=== PATIENT | male | born 1960 | race Caucasian/White ===

== ENCOUNTER → 2018-11-02 11:05 | Outpatient (CLI) | payer OTHER, SELFPAY ==
[2018-11-02 12:08] LABS: Erythrocyte Sedimentation Rate 2 mm/hr (0-20)
[2018-11-02 12:14] LABS: Absolute Lymphocyte Count 2.05 X10^3/ul (0.83-4.51); Absolute Neutrophil Count 3.9 X10^3/uL (2.0-7.7); Basophil# 0.03 X10^3/uL; Basophil% 0.5 % (0-1); Eosinophils% 1.5 % (0-5); Hematocrit 39.9 % (40-54); Hemoglobin 13.6 g/dl (13.0-16.5); Lymphocyte # 2.05 X10^3/ul (4.0); Lymphocyte % 30.8 % (19-41); Mean Corp Hgb Conc 34.1 g/gl (32-36); Mean Corpuscular Hgb 30.5 pg (27.0-32.0); Mean Corpuscular Volume 89.5 fL (80-94); Mean Platelet Vol. 9.1 fl (6.2-12.0); Monocyte# 0.55 X10^3/uL; Monocyte% 8.3 % (0-10); Neutrophil # 3.91 X10^3/uL (2.7-7.7); Neutrophil % 58.6 % (47-70); Platelet Count 217 K/mm3 (150-450); RBC Distribution Width SD 38.7 fl (35.1-43.9); Red Blood Count 4.46 M/mm3 (4.6-6.2); White Blood Count 6.7 K/mm3 (4.4-11.0)
[2018-11-02 12:23] LABS: POSITIVE COUNT NO; POSITIVE DIFFERENTIAL NO; POSITIVE MORPHOLOGY NO
[2018-11-02 12:53] LABS: ALB/GLOB Ratio 1.2 RATIO (0.9-2.4); AST(SGOT) 15 U/L (15-37); Alanine Aminotransfer ALT/SGPT 35 U/L (16-61); Albumin, Serum 4.1 g/dL (3.2-5.0); Alkaline Phosphatase 64 U/L (45-117); Anion Gap 10 (5-15); BUN 15 mg/dL (7-18); BUN/Creat Ratio 14.9 RATIO (10-20); Calcium,Total 8.6 mg/dL (8.5-10.1); Chloride 103 mmol/L (98-107); Creatinine, Serum 1.01 mg/dL (0.70-1.30); EST Glomerular Filtration Rate 80 mL/min (>60); Est Glom Filt Rate - Afr Amer 97 mL/min (>60); Globulin 3.4 g/dL (2.2-4.2); Glucose 93 mg/dL (74-106); Potassium 3.6 mmol/L (3.5-5.1); Protein, Total 7.5 g/dL (6.4-8.2); Sodium Level 139 mmol/L (136-145)
[2018-11-05 16:06] LABS: Endomysial Antibody IgA Negative (Negative)
[2018-11-06 13:23] LABS: Deamidated Gliadin IgA 4 units (0-19); Deamidated Gliadin IgG 5 units (0-19); Immunoglobulin A 254 mg/dL (90-386); t-Transglutaminase IgA <2 U/mL (0-3)
== END ==
PROVIDERS: Family Provider Family Medicine; PCP Family Medicine; Referring Provider Family Medicine; Visit Provider Family Medicine
DX: R19.7 Diarrhea, unspecified (principal); R10.30 Lower abdominal pain, unspecified
CPT/HCPCS: 36415; 80053; 82784; 83516; 85025; 85652; 86255; 87177; 87209; 87506

== ENCOUNTER → 2018-11-14 15:32 | Outpatient (CLI) | payer OTHER, SELFPAY | PROVIDERS: Family Provider Family Medicine; PCP Family Medicine; Referring Provider Family Medicine; Visit Provider Family Medicine | DX: R19.7 Diarrhea, unspecified (principal) | CPT/HCPCS: 87493; 87506 ==

== ENCOUNTER 2019-10-16 07:02 | Day surgery (SDC) | payer OTHER, SELFPAY ==
--- NOTE | 2019-09-23 02:17 | HP_ITS ---
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 Is patient in pain?: No Allergies No Known Allergies Allergy (Verified 09/23/19 13:56) Medications atorvastatin 10 mg tablet PO #30 tab 09/23/19 [History Confirmed 09/23/19] fexofenadine 180 mg tablet 180 mg PO DAILY 09/23/19 [History Confirmed 09/23/19] pantoprazole 40 mg tablet,delayed release PO #30 tab 09/23/19 [History Confirmed 09/23/19] PFSH Medical History (Updated 09/23/19 @ 13:55 by Taina Chang) Diarrhea (Acute) GERD (gastroesophageal reflux disease) (Acute) Surgical History (Updated 09/23/19 @ 13:55 by Taina Chang) History of colonoscopy (Acute ~12/2018) Status post excision of lipoma (Acute) Status post repair of pectoralis muscle tear (Acute) Family History (Updated 09/23/19 @ 13:55 by Taina Chang) Father Heart disease Cancer Mother Hypertension Social History (Updated 09/23/19 @ 14:17 by Alcira Patel MD) Smoking Status: Never smoker HPI HPI HPI: BRIT DELGADO, is a 59 M who presents to the office today for HPI HPI Surgical H&P: Yes HPI: BRIT DELGADO, is a 59 M who presents to the office today for reflux. Patient states he has been on protonix 40 mg p.o. daily for about 10 years. Patient states that his symptoms are mostly controlled with that however if he does drink more coffee or eats late in the day he will still have some symptoms of burning up his esophagus which occurs maybe about twice a week. Patient also has noticed increased coughing, patient has never smoked. Patient does have loose bowel movements daily denies any abdominal pain or cramping with this. Patient did undergo a colonoscopy 12/07/2018 where biopsies showed colonic mucosa with lymphoid follicle formation negative colitis and terminal ileum was normal on biopsy by Dr. Hernandez. ROS General General: Yes fatigue; no weight change, colon cancer, breast cancer or weakness HEENT HEENT: No difficulty swallowing, eye injury, eye surgery, swollen glands or hoarseness Endo Endocrine: No thyroid disease, diabetes mellitus, thyroid cancer, Hair loss, heat intolerance or cold intolerance Cardio Cardiovascular: No murmur, pacemaker, heart disease, atrial fibrillation, high blood pressure, heart attack, heart stent, palpitations, shortness of breat with exertion or chest pain Resp Respiratory: No shortness of breath, No sleep apnea, Yes cough, No COPD, No asthma, No emphysema, No wheezing Gastro Gastrointestinal: No abdominal pain, No nausea or vomiting, Yes diarrhea, No constipation, No blood in stool, Yes acid reflux, No hemorrhoids, No ulcers, No gallbladder problem, No black,tarry stools [place]on Hematologic: No blood thinners, No blood disorders, No bleeding, No anemia, No blood clots Neuro Neurologic: No weakness Exam Const General: cooperative, comfortable, no acute distress Resp Effort & Inspection: normal respiratory effort Cardio Rate: regular rate Heart Sounds: no murmurs GI Inspection: non-distended Palpation: soft, no guarding, no hernias, nontender Neuro Cranial Nerves: CN's II-XI intact bilaterally Extrem General: no clubbing, cyanosis or edema Psych Affect: normal affect Assessment & Plan Problems 1. Gastroesophageal reflux disease K21.9 Plan I have discussed the above with the patient. I have offered the patient EGD for evaluation. I have explained the risks/benefits of the procedure and described the procedure. I have discussed the risks with the patient, including but not limited to: infection, bleeding, perforation of the GI tract requiring emergency surgery, inability to complete the procedure, injury to any internal organs, complications of anesthesia, etc. - the patient understands and agrees to proceed. I have answered all the patient's questions to the patient's satisfaction and the patient has no further questions. Alcira Patel M.D. Pager: [phone] [facility] [address] [place] [address], [address] [place] [address] Office: [phone] Orders Orders: EGD Today Plan Detail Follow Up We will schedule EGD Coding Level of Care Code Off vis,new,level 3 Diagnoses Gastroesophageal reflux disease K21.9 09/23/19 1417 <Electronically signed by Alcira Zhang am, MD> Date _ Alcira Patel MD I have re-examined the patient. There are no clinical changes since date of exam.
[2019-09-23 13:56] VITALS: BMI 28.4
[2019-10-16] VITALS (7 sets, daily range): BP systolic 110–124; BP diastolic 73–82; PULSE 58–63; RESP 16; TEMP 35.8–36.4; O2SAT 97–100; BMI 29.4
--- NOTE | 2019-10-16 | IMM_PTH ---
PATIENT: BRIT DELGADO LOC: EN U#:[id number] AGE/SX: 59/M ROOM: RE10/16/[address]: Dr. Alcira Patel MD : 1960 BED: DIS: 10/16/2019 SPEC #: [id number] RECD: 10/16/19 14:55 STATUS: VIRGIL REJewel #: [id number] SABINO: 10/16/19 00:[address]: Alcira Patel DEPT: IMMUNOHISTOCHEMISTRY RECD BY: Low Baltazar ENTERED: 10/16/19 14:55 SP TYPE: IMMUNO OTHR DR: Dr. Manuel Rangel MD Tissues: Gastric mucous membrane Procedures: H Pylori (initial) P53 (initial) KI-67 (add) CDX2 (add) PHYSICIAN & INSTITUTION [place] [address] SPECIMEN INFORMATION: Tissue Source: A - Antrum biopsy, C - GE junction biopsy Clinical Info: GERD Specimen Number: [id number] A & C CPT code: 65859 x2, 83210 x2 METHODOLOGY: Deparaffinized sections of prefer/formalin-fixed tissue or PAP/DQ stained slides are incubated with monoclonal/polyclonal antibodies/oligonucleotide probes. Localization is made via biotin free immunoperoxidase method. Appropriate controls are performed and reacted as expected. Results on target cell population are indicated in the following table: RESULTS: ANTIBODY / CLONE RESULT Block A H Pylori (polyclonal) negative Block C P53 (DO-7) negative Ki-67 (30-9) positive, low CDX2 ([id number]) positive, focal These tests were developed and their performance characteristics determined by [facility]. They may not have been cleared or approved by the U.S. Food and Drug Administration. The FDA has determined that such clearance or approval is not necessary. The above immunohistochemical/dualISH markers are ordered and reviewed by the pathologist. INTERPRETATION: A. Antrum biopsy: Negative for Helicobacter pylori organisms. C. GE junction biopsy: No evidence of dysplasia. AM:denise 10/17/19
[2019-10-16] MEDS: Lactated Ringers 1,000 ML 100 ML IV (07:34)
--- NOTE | 2019-10-16 08:00 | EGD_PTH ---
PATIENT: BRIT DELGADO LOC: EN U#:[id number] AGE/SX: 59/M ROOM: RE10/16/[address]: Dr. Alcira Patel MD : 1960 BED: DIS: 10/16/2019 SPEC #: [id number] RECD: 10/16/19 10:50 STATUS: VIRGIL AYE #: [id number] SABINO: 10/16/19 08:[address]: Alcira Patel DEPT: SURGICAL PATHOLOGY RECD BY: Kev Cruz ENTERED: 10/16/19 13:33 SP TYPE: EGD BIOPSY OT DR: Dr. Manuel Rangel MD Tissues: A - Gastric mucous membrane B - Gastric mucous membrane C - Gastric mucous membrane D - Gastric mucous membrane Procedures: Special Stain Group II Surgery Specimen Level IV Alcian Blue/PAS (control) HEADER OPERATION: EGD ([facility]) PRE-OP DIAGNOSIS: GERD TISSUE SUBMITTED: A. Antrum biopsy for histo and H. pylori, B. Gastric polyp, C. GE junction biopsy, D. Gastric body biopsy MICROSCOPIC DIAGNOSIS A. Gastric antrum, biopsy: Mild chronic inflammation. See comment. B. Gastric polyp, biopsy: Fragments of fundic gland polyp. C. Gastroesophageal junction, biopsy: Mild chronic inflammation. 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 No evidence of dysplasia. See comment. D. Gastric body, biopsy: Minimal chronic inflammation. AM:denise 10/17/19 COMMENT A. The results of immunohistochemistry for Helicobacter pylori will be reported separately ([id number]). C. Immunohistochemistry ([id number]) supports the above diagnosis. Alcian blue/PAS stain with matched control supports the above diagnosis. MICROSCOPIC DESCRIPTION Slides are reviewed. GROSS DESCRIPTION A - Received in fixative is one container labeled with the patient's name and designated antrum biopsy. The specimen consists of one irregular fragment of light castillo soft tissue that measures 0.2 x 0.2 x 0.1 cm. The specimen is totally submitted in one cassette. B - Received in fixative is one container labeled with the patient's name and designated gastric polyp biopsy. The specimen consists of multiple irregular fragments of light castillo soft tissue that in aggregate measure 0.8 x 0.3 x 0.1 cm. The specimen is totally submitted in one cassette. C - Received in fixative is one container labeled with the patient's name and designated GE junction biopsy. The specimen consists of two irregular fragments of light castillo soft tissue that in aggregate measure 0.3 x 0.2 x 0.1 cm. The specimen is totally submitted in one cassette. D - Received in fixative is one container labeled with the patient's name and designated gastric body biopsy erythema. The specimen consists of one irregular fragment of light castillo soft tissue that measures 0.3 x 0.3 x 0.1 cm. The specimen is totally submitted in one cassette. / SJ:denise 10/16/19 TC:3 CPT: 61891 x4, 23443
--- NOTE | 2019-10-16 08:15 | OP.EGD_ITS ---
Patient Name: Andrea Ortiz Procedure Date: 10/16/2019 7:14 AM Date of : 1960 Age: 59 Procedure: Upper GI endoscopy Indications: Follow-up of gastro-esophageal reflux disease Providers: Alcira Patel MD Medicines: Monitored Anesthesia Care Patient Profile: This is a 59 year old male. Complications: No immediate complications. Procedure: Pre-Anesthesia Assessment: - Prior to the procedure, a History and Physical was performed, and patient medications and allergies were reviewed. The patient's tolerance of previous anesthesia was also reviewed. The risks and benefits of the procedure and the sedation options and risks were discussed with the patient. All questions were answered, and informed consent was obtained. Prior Anticoagulants: The patient has taken no previous anticoagulant or antiplatelet agents. ASA Grade Assessment: II - A patient with mild systemic disease. After reviewing the risks and benefits, the patient was deemed in satisfactory condition to undergo the procedure. After obtaining informed consent, the endoscope was passed under direct vision. Throughout the procedure, the patient's blood pressure, pulse, and oxygen saturations were monitored continuously. The gastroscope was introduced through the mouth, and advanced to the second part of duodenum. The upper GI endoscopy was accomplished without difficulty. The patient tolerated the procedure well. Scope In: 7:55:32 AM Scope Out: 8:07:25 AM Total Procedure Duration Time 0 hours 11 minutes 53 seconds Findings: The Z-line was variable and was found 42 cm from the incisors. Biopsies were taken with a cold forceps for histology. Mildly erythematous mucosa without bleeding was found in the gastric antrum. Biopsies were taken with a cold forceps for histology. Biopsies were taken with a cold forceps for Helicobacter pylori cultures. A single less than 5 mm semi-sessile polyp with no bleeding and no stigmata of recent bleeding was found in the gastric body. The polyp was removed with a cold biopsy forceps. Resection and retrieval were complete. A 2 cm hiatal hernia was present. Localized mildly erythematous mucosa without bleeding was found in the gastric body. Biopsies were taken with a cold forceps for histology. The examined duodenum was normal. Impression: - Z-line variable, 42 cm from the incisors. Biopsied. - Erythematous mucosa in the antrum. Biopsied. - A single gastric polyp. Resected and retrieved. - 2 cm hiatal hernia. - Erythematous mucosa in the gastric body. Biopsied. - Normal examined duodenum. Recommendation: - Await pathology results. - Discharge patient to home. - Continue present medications. Procedure Code(s): --- Professional --- 62994, Esophagogastroduodenoscopy, flexible, transoral; with biopsy, single or multiple Diagnosis Code(s): --- Professional --- K22.8, Other specified diseases of esophagus K31.89, Other diseases of stomach and duodenum K31.7, Polyp of stomach and duodenum K44.9, Diaphragmatic hernia without obstruction or gangrene K21.9, Gastro-esophageal reflux disease without esophagitis CPT copyright 2017 [employer]. All rights reserved. The codes documented in this report are preliminary and upon inorganic chemistry professor review may be revised to meet current compliance requirements. MD Alcira Deluna MD 10/16/2019 8:14:56 AM This report has been signed electronically. Number of Addenda: 0 Note Initiated On: 10/16/2019 7:14 AM
== END 2019-10-16 08:58 | disposition home or self-care (01) ==
LOC: EN 07:03 → AC 07:04
PROVIDERS: Family Provider Family Medicine; PCP Family Medicine; Referring Provider Family Medicine; Visit Provider Surgery
PROC: 0DJ08ZZ Inspection of Upper Intestinal Tract, Via Natural or Artificial Opening Endoscopic (ICD-10-PCS; CPT 43235; principal; 2019-10-16 07:55)
DX: K22.70 Barrett's esophagus without dysplasia (principal); K29.50 Unspecified chronic gastritis without bleeding; K31.7 Polyp of stomach and duodenum; K44.9 Diaphragmatic hernia without obstruction or gangrene; K21.9 Gastro-esophageal reflux disease without esophagitis; E78.00 Pure hypercholesterolemia, unspecified; Z79.899 Other long term (current) drug therapy
CPT/HCPCS: 43239; 88305; 88313; 88341; 88342; J7120

== ENCOUNTER → 2019-11-01 08:24 | Outpatient (CLI) | payer OTHER, SELFPAY ==
[2019-10-16 07:21] VITALS: BMI 29.4
[2019-11-01 08:28] LABS: Bacteria 0 SEEN /hpf (None Seen); Mucous, Urine 0 SEEN /hpf (<or=2+); Red Blood Cells-Urine 0 SEEN /hpf (0-5); Squamous Epithelial Cells - UA 0 SEEN /hpf (0-5); White Blood Cells 0 SEEN /hpf (0-5)
[2019-11-01 10:28] LABS: Color, Urine Yellow (Yellow); Glucose, Dipstick Normal (Normal); Ketone-Dipstick Negative (Negative); Leukocyte Esterase-Dipstick Negative /ul (Negative); Nitrite-Dipstick Negative (Negative); Occult Blood-Urine 10 /ul (Negative); Protein-Dipstick Negative (Negative); Specific Gravity, Urine 1.015 (1.002-1.030); Urine Bilirubin Dipstick Negative (Negative); Urine Clarity Sl. Cloudy (Clear); Urine Urobilinogen Normal (Normal)
[2019-11-01 11:46] LABS: ALB/GLOB Ratio 1.2 RATIO (0.9-2.4); AST(SGOT) 13 U/L (15-37); Alanine Aminotransfer ALT/SGPT 33 U/L (16-61); Albumin, Serum 4.1 g/dL (3.2-5.0); Alkaline Phosphatase 56 U/L (45-117); Anion Gap 6 (5-15); BUN 17 mg/dL (7-18); BUN/Creat Ratio 16.7 RATIO (10-20); Calcium,Total 8.7 mg/dL (8.5-10.1); Chloride 105 mmol/L (98-107); Cholesterol 174 mg/dL (200); Creatinine, Serum 1.02 mg/dL (0.70-1.30); EST Glomerular Filtration Rate 79 mL/min (>60); Est Glom Filt Rate - Afr Amer 96 mL/min (>60); Globulin 3.4 g/dL (2.2-4.2); Glucose 104 mg/dL (74-106); High Density Lipoprotein 41 mg/dL; PSA,Total - Annual Screen 1.28 ng/mL (0.00-4.00); Potassium 3.9 mmol/L (3.5-5.1); Protein, Total 7.5 g/dL (6.4-8.2); Sodium Level 141 mmol/L (136-145); Triglycerides 194 mg/dL; Very Low Density Lipoprotein 39 mg/dL (5-40)
== END ==
PROVIDERS: Family Provider Family Medicine; PCP Family Medicine; Visit Provider Family Medicine
DX: E78.00 Pure hypercholesterolemia, unspecified (principal); Z12.5 Encounter for screening for malignant neoplasm of prostate; R31.9 Hematuria, unspecified
CPT/HCPCS: 36415; 80053; 80061; 81001; 84153; G0103

== ENCOUNTER → 2020-09-24 07:57 | Outpatient (CLI) | payer OTHER, SELFPAY ==
[2019-10-16 07:21] VITALS: BMI 29.4
[2020-09-24 10:13] LABS: Cholesterol 152 mg/dL (200); High Density Lipoprotein 40 mg/dL; Triglycerides 126 mg/dL; Very Low Density Lipoprotein 25 mg/dL (5-40)
== END ==
PROVIDERS: PCP Family Medicine; Referring Provider Family Medicine; Visit Provider Family Medicine
DX: E78.00 Pure hypercholesterolemia, unspecified (principal)
CPT/HCPCS: 36415; 80061

== ENCOUNTER → 2020-09-30 13:25 | Outpatient (CLI) | payer SELFPAY ==
[2019-10-16 07:21] VITALS: BMI 29.4
--- NOTE | 2020-09-30 13:34 | CT_ITS ---
STUDY: CARDIAC CALCIUM SCORING - CT CHEST REASON FOR EXAM: Male, 60 years old. FAMILY HX HEART DISEASE. OVER READ ONLY RADIATION DOSAGE (If Supplied By Facility): CTDIvol = ( 12.19 ) mGy, DLP = ( 195.04 ) mGycm TECHNIQUE: Axial non-enhanced images were acquired through the heart for the sole purpose of measuring coronary artery calcium. Individualized dose optimization techniques were used for this CT. COMPARISON: None. FINDINGS: There are calcified lymph nodes of the mediastinum and right hilum. The visualized lungs are unremarkable without pulmonary nodule or localized groundglass opacity. No endobronchial lesions demonstrated. Degenerative changes of the thoracic spine present. CT/Limited Chest CT w/CCTA IMPRESSION: No significant incidental finding. Coronary calcium scoring reported separately. Electronically Signed: Christian Montes MD ([place]) at 8:04 EST , Service support ,
[2020-09-30 13:41] VITALS: BP 124/66; PULSE 65; RESP 18; TEMP 36.8; O2SAT 97; BMI 28.1
--- NOTE | 2020-09-30 16:50 | CA.SCORE ---
Calcium Scoring Date of Study:: 09/30/20 Coronary Calcium Scoring: High-resolution Computed Tomographic imaging of the chest was performed on [09/30/2020], with particular attention paid to the coronary arteries. Images from the examination were analyzed for the presence and extent of coronary artery calcification , using coronary calcium quantification software. The patient tolerated the procedure well and there were no complications. The results of the coronary calcification analysis are provided below. - Findings Left Main (LM): 18 Left Anterior Descending (LAD): 76 Left Circumflex (LCX): 3 Right Coronary Artery (RCA): 0 Total Agatston Score: 97 Calcium Scoring Interpretation: 0 No identifiable atherosclerotic plaque. Very low cardiovascular disease risk. <5% chance of presence coronary artery disease A Negative Examination 1-10 Minimal Plaque burden. Significant coronary artery disease very unlikely. 11-100 Mild plaque burden. Likely mild or minimal coronary atherosclerosis. 101-400 Moderate plaque burden Moderate non-obstructive coronary artery disease highly likely. Over 400 Extensive plaque burden. High likelihood of at least one significant coronary stenosis (>50% diameter) Calcium Score: 11 - 100 Likely mild or minimal coronary stenosis - The above is suggestive of mild atherosclerotic nonobstructive plaquing. A full assessment of cardiac risk factors should include assessment of all conventional risk factors.
== END ==
PROVIDERS: PCP Family Medicine; Referring Provider Family Medicine; Visit Provider Family Medicine
DX: Z82.49 Family history of ischemic heart disease and other diseases of the circulatory system (principal)
CPT/HCPCS: 75571; 76380

== ENCOUNTER → 2021-03-12 07:46 | Outpatient (CLI) | payer OTHER, SELFPAY ==
[2020-09-30 13:41] VITALS: BMI 28.1
[2021-03-12 10:04] LABS: Absolute Lymphocyte Count 1.46 X10^3/uL (0.83-4.51); Basophil# 0.06 X10^3/uL; Eosinophil# 0.14 X10^3/uL; Eosinophils% 2.2 % (0-5); Hematocrit 41.6 % (40-54); Hemoglobin 13.3 g/dL (13.0-16.5); Lymphocyte # 1.46 X10^3/ul (0.83-4.51); Lymphocyte % 23.4 % (19-41); Mean Corpuscular Hgb 29.8 pg (27.0-32.0); Mean Corpuscular Volume 93.3 fL (80-94); Mean Platelet Vol. 9.5 fl (6.2-12.0); Monocyte# 0.52 X10^3/uL; Monocyte% 8.3 % (0-10); NRBC Flagged by Analyzer 0 % (0-5); Neutrophil # 4.03 X10^3/uL (2.7-7.7); Neutrophil % 64.6 % (47-70); Platelet Count 234 K/mm3 (150-450); RBC Distribution Width CV 11.6 % (11.6-14.6); Red Blood Count 4.46 M/mm3 (4.6-6.2); White Blood Count 6.2 K/mm3 (4.4-11.0)
[2021-03-12 11:15] LABS: ALB/GLOB Ratio 1.2 RATIO (0.9-2.4); AST(SGOT) 11 U/L (15-37); Alanine Aminotransfer ALT/SGPT 24 U/L (16-61); Alkaline Phosphatase 67 U/L (45-117); Anion Gap 4 (5-15); BUN 22 mg/dL (7-18); BUN/Creat Ratio 19.8 RATIO (10-20); Calcium,Total 9.2 mg/dL (8.5-10.1); Chloride 104 mmol/L (98-107); Cholesterol 170 mg/dL (200); Creatinine, Serum 1.11 mg/dL (0.70-1.30); EST Glomerular Filtration Rate 71 mL/min (>60); Est Glom Filt Rate - Afr Amer 87 mL/min (>60); Globulin 3.4 g/dL (2.2-4.2); Glucose 107 mg/dL (74-106); High Density Lipoprotein 44 mg/dL; Magnesium 2.6 mg/dL (1.6-2.6); Potassium 4.7 mmol/L (3.5-5.1); Protein, Total 7.4 g/dL (6.4-8.2); Sodium Level 138 mmol/L (136-145); Triglycerides 156 mg/dL; Very Low Density Lipoprotein 31 mg/dL (5-40)
== END ==
PROVIDERS: PCP Family Medicine; Referring Provider Family Medicine; Visit Provider Family Medicine
DX: R42 Dizziness and giddiness (principal); E78.00 Pure hypercholesterolemia, unspecified
CPT/HCPCS: 36415; 80053; 80061; 83735; 85025

== ENCOUNTER → 2021-08-11 | Outpatient (CLI) | payer OTHER, SELFPAY | END | disposition home or self-care (01) | LOC: LABSPEC 15:16 | PROVIDERS: PCP Family Medicine; Visit Provider Nurse Practitioner Family | DX: R31.9 Hematuria, unspecified (principal) | CPT/HCPCS: 87086 ==

== ENCOUNTER → 2021-08-13 12:36 | Outpatient (CLI) | payer OTHER, SELFPAY ==
--- NOTE | 2021-08-13 12:38 | US_ITS ---
STUDY: SCROTUM ULTRASOUND REASON FOR EXAM: Male, 60 years old. Pain x2 weeks TECHNIQUE: Ultrasound evaluation of the scrotum was performed with color Doppler and static molina-scale imaging. COMPARISON: None. FINDINGS: RIGHT TESTICLE INTRATESTICULAR: There is a normal size of the right testicle. The right testicle measures 4 x 3.3 x 2 cm. There is a heterogeneous echotexture. There is normal arterial and normal venous vascularity. There is no demonstrated right testicular mass or cyst. EXTRATESTICULAR: The epididymis is normal in size. The epididymis head measures 1.4 cm. There is normal vascularity of the epididymis. There is a 0.4 cm epididymal cyst There is a moderate size hydrocele. There is no demonstrated varicocele. There is no demonstrated extratesticular mass or cyst. LEFT TESTICLE INTRATESTICULAR: There is a normal size of the left testicle. The left testicle measures 4.0 x 2.8 x 2.0 cm. There is a heterogeneous echotexture. There is normal arterial and normal venous vascularity. There is no demonstrated left testicular mass or cyst. EXTRATESTICULAR: The epididymis is normal in size. The epididymis head measures 1.4 cm. There is normal vascularity of the epididymis. There are 2 separate epididymal cysts. Larger measures 0.6 cm There is a moderate size hydrocele. There is no demonstrated varicocele. There is no demonstrated extratesticular mass or cyst. US/Testicular with Arterial Flow IMPRESSION: Although the testicles are heterogeneous, there is no discrete lesion or sonographic evidence to suspect torsion Bilateral moderate-sized hydroceles Bilateral epididymal cysts No sonographic evidence of hernia Electronically Signed: Hernan Tejeda MD at 13:46 EDT , Service support ,
== END ==
PROVIDERS: PCP Family Medicine; Referring Provider Nurse Practitioner Family; Visit Provider Nurse Practitioner Family
DX: N43.3 Hydrocele, unspecified (principal); N50.3 Cyst of epididymis
CPT/HCPCS: 76870; 93976

== ENCOUNTER → 2021-08-26 11:17 | Outpatient (CLI) | payer OTHER, SELFPAY ==
[2021-08-26 13:12] LABS: PSA,Total - Annual Screen 1.92 ng/mL (0.00-4.00)
== END ==
PROVIDERS: PCP Family Medicine; Visit Provider Urology
DX: Z12.5 Encounter for screening for malignant neoplasm of prostate (principal)
CPT/HCPCS: 36415; 84153; G0103

== ENCOUNTER → 2022-04-25 | Outpatient (CLI) | payer OTHER, SELFPAY ==
[2022-04-25 17:33] LABS: Absolute Lymphocyte Count 1.93 X10^3/uL (0.83-4.51); Absolute Neutrophil Count 3.9 X10^3/uL (2.0-7.7); Basophil# 0.06 X10^3/uL; Basophil% 0.9 % (0-1); Eosinophil# 0.14 X10^3/uL; Eosinophils% 2.1 % (0-5); Hematocrit 37.5 % (40-54); Hemoglobin 12.5 g/dL (13.0-16.5); Lymphocyte # 1.93 X10^3/ul (0.83-4.51); Lymphocyte % 29.1 % (19-41); Mean Corp Hgb Conc 33.3 g/dL (32-36); Mean Corpuscular Hgb 30.5 pg (27.0-32.0); Mean Corpuscular Volume 91.5 fL (80-94); Mean Platelet Vol. 9.6 fl (6.2-12.0); Monocyte# 0.62 X10^3/uL; Monocyte% 9.3 % (0-10); NRBC Flagged by Analyzer 0 % (0-5); Neutrophil # 3.88 X10^3/uL (2.7-7.7); Neutrophil % 58.4 % (47-70); Platelet Count 247 K/mm3 (150-450); RBC Distribution Width CV 11.9 % (11.6-14.6); RBC Distribution Width SD 39.7 fl (35.1-43.9); White Blood Count 6.6 K/mm3 (4.4-11.0)
[2022-04-25 18:05] LABS: ALB/GLOB Ratio 1.2 RATIO (0.9-2.4); AST(SGOT) 11 U/L (15-37); Alanine Aminotransfer ALT/SGPT 22 U/L (16-61); Albumin, Serum 3.9 g/dL (3.2-5.0); Alkaline Phosphatase 66 U/L (45-117); Anion Gap 5 (5-15); BUN 22 mg/dL (7-18); BUN/Creat Ratio 19.5 RATIO (10-20); Calcium,Total 8.6 mg/dL (8.5-10.1); Chloride 106 mmol/L (98-107); Cholesterol 160 mg/dL (200); Creatinine, Serum 1.13 mg/dL (0.70-1.30); EST Glomerular Filtration Rate 70 mL/min (>60); Est Glom Filt Rate - Afr Amer 84 mL/min (>60); Globulin 3.3 g/dL (2.2-4.2); Glucose 93 mg/dL (74-106); High Density Lipoprotein 40 mg/dL; Potassium 3.8 mmol/L (3.5-5.1); Protein, Total 7.2 g/dL (6.4-8.2); Sodium Level 140 mmol/L (136-145); Triglycerides 224 mg/dL; Very Low Density Lipoprotein 45 mg/dL (5-40)
[2022-04-25 21:06] LABS: Hemoglobin A1c 5.5 % (3.8-5.6)
[2022-04-25 22:32] LABS: Vitamin B12 435 pg/mL (211-911)
[2022-04-26 14:50] LABS: Ferritin 264 ng/mL (26-388); Iron 100 ug/dL (65-175); Iron Binding Capacity,Total 280 ug/dL (250-450); PERCENT IRON SATURATION 35.7 % (15.0-55.0)
== END | disposition home or self-care (01) ==
LOC: MFPLAB 16:30
PROVIDERS: PCP Family Medicine; Visit Provider Family Medicine
DX: R20.0 Anesthesia of skin (principal); E78.00 Pure hypercholesterolemia, unspecified; K21.9 Gastro-esophageal reflux disease without esophagitis; E61.1 Iron deficiency
CPT/HCPCS: 36415; 80053; 80061; 82607; 82728; 83036; 83540; 83550; 85025

== ENCOUNTER → 2023-07-28 | Outpatient (CLI) | payer OTHER, SELFPAY ==
[2023-07-28 13:17] LABS: AST(SGOT) 18 U/L (15-37); Alanine Aminotransfer ALT/SGPT 31 U/L (16-61); Cholesterol 162 mg/dL (200); High Density Lipoprotein 43 mg/dL; Triglycerides 172 mg/dL; Very Low Density Lipoprotein 34 mg/dL (5-40)
== END | disposition home or self-care (01) ==
PROVIDERS: PCP Family Medicine; Referring Provider Family Medicine; Visit Provider Family Medicine
DX: E78.00 Pure hypercholesterolemia, unspecified (principal)
CPT/HCPCS: 36415; 80061; 84450; 84460

== ENCOUNTER → 2024-04-04 | Outpatient (CLI) | payer OTHER, SELFPAY ==
[2024-04-04 12:15] LABS: Color, Urine Yellow (Yellow); Glucose, Dipstick Normal (Normal); Ketone-Dipstick Negative (Negative); Leukocyte Esterase-Dipstick Negative /ul (Negative); Nitrite-Dipstick Negative (Negative); Occult Blood-Urine 10 /ul (Negative); Protein-Dipstick Negative (Negative); Urine Bilirubin Dipstick Negative (Negative); Urine Clarity Clear (Clear); Urine Urobilinogen Normal (Normal)
[2024-04-04 13:02] LABS: Absolute Lymphocyte Count 1.62 X10^3/uL (0.83-4.51); Absolute Neutrophil Count 3.8 X10^3/uL (2.0-7.7); Basophil# 0.06 X10^3/uL; Eosinophil# 0.14 X10^3/uL; Eosinophils% 2.3 % (0-5); Hematocrit 38.5 % (40-54); Hemoglobin 12.8 g/dL (13.0-16.5); Lymphocyte # 1.62 X10^3/ul (0.83-4.51); Lymphocyte % 26.2 % (19-41); Mean Corp Hgb Conc 33.2 g/dL (32-36); Mean Corpuscular Hgb 30.8 pg (27.0-32.0); Mean Corpuscular Volume 92.5 fL (80-94); Mean Platelet Vol. 9.9 fl (6.2-12.0); Monocyte# 0.52 X10^3/uL; Monocyte% 8.4 % (0-10); NRBC Flagged by Analyzer 0 % (0-5); Neutrophil # 3.83 X10^3/uL (2.7-7.7); Neutrophil % 61.8 % (47-70); Platelet Count 232 K/mm3 (150-450); RBC Distribution Width CV 11.9 % (11.6-14.6); RBC Distribution Width SD 40.7 fl (35.1-43.9); Red Blood Count 4.16 M/mm3 (4.6-6.2); White Blood Count 6.2 K/mm3 (4.4-11.0)
[2024-04-04 13:23] LABS: Vitamin B12 412 pg/mL (211-911); Vitamin D,25 Hydroxy 28.4 ng/mL
[2024-04-04 13:32] LABS: Hemoglobin A1c 5.4 % (3.8-5.6)
[2024-04-04 13:37] LABS: ALB/GLOB Ratio 1.2 RATIO (0.9-2.4); AST(SGOT) 14 U/L (15-37); Alanine Aminotransfer ALT/SGPT 24 U/L (16-61); Albumin, Serum 3.9 g/dL (3.2-5.0); Alkaline Phosphatase 55 U/L (45-117); Anion Gap 6 (5-15); BUN 19 mg/dL (7-18); BUN/Creat Ratio 19.3 RATIO (10-20); Calcium,Total 8.6 mg/dL (8.5-10.1); Chloride 105 mmol/L (98-107); Cholesterol 161 mg/dL (200); Creatinine, Serum 0.99 mg/dL (0.70-1.30); EST Glomerular Filtration Rate 81 mL/min (>60); Est Glom Filt Rate - Afr Amer 98 mL/min (>60); Globulin 3.2 g/dL (2.2-4.2); Glucose 108 mg/dL (74-106); High Density Lipoprotein 43 mg/dL; PSA,Total - Annual Screen 1.92 ng/mL (0.00-4.00); Potassium 3.8 mmol/L (3.5-5.1); Protein, Total 7.1 g/dL (6.4-8.2); Sodium Level 139 mmol/L (136-145); Thyroid Stim Hormone (TSH) 0.99 uIU/mL (0.358-3.74); Triglycerides 143 mg/dL; Very Low Density Lipoprotein 29 mg/dL (5-40)
[2024-04-10 09:09] LABS: Testosterone, % Free 2.45 % (1.50-4.20); Testosterone, Total 298 ng/dL (264-916)
== END | disposition home or self-care (01) ==
LOC: MTLAB 09:11
PROVIDERS: PCP Nurse Practitioner Family; Referring Provider Nurse Practitioner Family; Visit Provider Nurse Practitioner Family
DX: Z00.00 Encounter for general adult medical examination without abnormal findings (principal); E55.9 Vitamin D deficiency, unspecified; E29.1 Testicular hypofunction
CPT/HCPCS: 36415; 80053; 80061; 81002; 82306; 82607; 83036; 84153; 84402; 84403; 84443; 85025; G0103

== ENCOUNTER → 2024-05-30 | Outpatient (CLI) | payer OTHER, SELFPAY ==
[2024-05-30 12:11] LABS: PSA,Total- Diagnostic 1.93 ng/mL (0.0-4.0)
[2024-05-30 12:18] LABS: Absolute Lymphocyte Count 1.34 X10^3/uL (0.83-4.51); Absolute Neutrophil Count 4.6 X10^3/uL (2.0-7.7); Basophil# 0.06 X10^3/uL; Basophil% 0.9 % (0-1); Eosinophil# 0.16 X10^3/uL; Eosinophils% 2.4 % (0-5); Hematocrit 39.2 % (40-54); Lymphocyte # 1.34 X10^3/ul (0.83-4.51); Lymphocyte % 20.1 % (19-41); Mean Corp Hgb Conc 33.2 g/dL (32-36); Mean Corpuscular Volume 93.3 fL (80-94); Mean Platelet Vol. 9.4 fl (6.2-12.0); Monocyte# 0.48 X10^3/uL; Monocyte% 7.2 % (0-10); NRBC Flagged by Analyzer 0 % (0-5); Neutrophil # 4.62 X10^3/uL (2.7-7.7); Neutrophil % 69.1 % (47-70); Platelet Count 214 K/mm3 (150-450); RBC Distribution Width CV 11.9 % (11.6-14.6); RBC Distribution Width SD 41.2 fl (35.1-43.9); White Blood Count 6.7 K/mm3 (4.4-11.0)
[2024-06-04 11:09] LABS: Testosterone, % Free 2.17 % (1.50-4.20); Testosterone, Free 2.84 ng/dL (5.00-21.00); Testosterone, Total 131 ng/dL (264-916)
== END | disposition home or self-care (01) ==
PROVIDERS: PCP Nurse Practitioner Family; Visit Provider Nurse Practitioner Family
DX: E29.1 Testicular hypofunction (principal)
CPT/HCPCS: 36415; 84153; 84402; 84403; 85025

== ENCOUNTER → 2024-09-05 | Outpatient (CLI) | payer OTHER, SELFPAY ==
[2024-09-05 13:10] LABS: Absolute Lymphocyte Count 1.47 X10^3/uL (0.83-4.51); Absolute Neutrophil Count 3.6 X10^3/uL (2.0-7.7); Basophil# 0.05 X10^3/uL; Basophil% 0.8 % (0-1); Eosinophil# 0.22 X10^3/uL; Eosinophils% 3.7 % (0-5); Hematocrit 42.4 % (40-54); Hemoglobin 14.3 g/dL (13.0-16.5); Lymphocyte # 1.47 X10^3/ul (0.83-4.51); Lymphocyte % 24.8 % (19-41); Mean Corp Hgb Conc 33.7 g/dL (32-36); Mean Corpuscular Hgb 31.3 pg (27.0-32.0); Mean Corpuscular Volume 92.8 fL (80-94); Mean Platelet Vol. 9.5 fl (6.2-12.0); Monocyte# 0.59 X10^3/uL; NRBC Flagged by Analyzer 0 % (0-5); Neutrophil # 3.58 X10^3/uL (2.7-7.7); Neutrophil % 60.5 % (47-70); Platelet Count 210 K/mm3 (150-450); RBC Distribution Width CV 11.9 % (11.6-14.6); RBC Distribution Width SD 40.2 fl (35.1-43.9); Red Blood Count 4.57 M/mm3 (4.6-6.2); White Blood Count 5.9 K/mm3 (4.4-11.0)
[2024-09-12 14:11] LABS: Testosterone, % Free 2.85 % (1.50-4.20); Testosterone, Free 13.91 ng/dL (5.00-21.00); Testosterone, Total 488 ng/dL (264-916)
== END | disposition home or self-care (01) ==
LOC: VSLAB 08:31
PROVIDERS: PCP Nurse Practitioner Family; Visit Provider Nurse Practitioner Family
DX: E29.1 Testicular hypofunction (principal)
CPT/HCPCS: 36415; 84153; 84402; 84403; 84443; 85025

== ENCOUNTER → 2024-12-12 | Outpatient (CLI) | payer OTHER, SELFPAY ==
[2024-12-12 12:47] LABS: Absolute Lymphocyte Count 1.39 X10^3/uL (0.83-4.51); Absolute Neutrophil Count 3.9 X10^3/uL (2.0-7.7); Basophil# 0.05 X10^3/uL; Basophil% 0.8 % (0-1); Eosinophil# 0.22 X10^3/uL; Eosinophils% 3.6 % (0-5); Hematocrit 38.8 % (40-54); Hemoglobin 13.1 g/dL (13.0-16.5); Lymphocyte # 1.39 X10^3/ul (0.83-4.51); Lymphocyte % 23.1 % (19-41); Mean Corp Hgb Conc 33.8 g/dL (32-36); Mean Corpuscular Hgb 31.6 pg (27.0-32.0); Mean Corpuscular Volume 93.7 fL (80-94); Mean Platelet Vol. 9.9 fl (6.2-12.0); Monocyte% 8.3 % (0-10); NRBC Flagged by Analyzer 0 % (0-5); Neutrophil # 3.85 X10^3/uL (2.7-7.7); Neutrophil % 63.9 % (47-70); Platelet Count 194 K/mm3 (150-450); RBC Distribution Width CV 11.9 % (11.6-14.6); RBC Distribution Width SD 40.8 fl (35.1-43.9); Red Blood Count 4.14 M/mm3 (4.6-6.2)
[2024-12-12 13:48] LABS: ALB/GLOB Ratio 1.2 RATIO (0.9-2.4); AST(SGOT) 18 U/L (15-37); Alanine Aminotransfer ALT/SGPT 28 U/L (16-61); Alkaline Phosphatase 55 U/L (45-117); Anion Gap 8 (5-15); BUN 25 mg/dL (7-18); BUN/Creat Ratio 22.9 RATIO (10-20); Calcium,Total 8.9 mg/dL (8.5-10.1); Chloride 106 mmol/L (98-107); Cholesterol 149 mg/dL (200); Creatinine, Serum 1.09 mg/dL (0.70-1.30); EST Glomerular Filtration Rate 72 mL/min (>60); Est Glom Filt Rate - Afr Amer 87 mL/min (>60); Globulin 3.4 g/dL (2.2-4.2); Glucose 89 mg/dL (74-106); High Density Lipoprotein 44 mg/dL; Potassium 4.1 mmol/L (3.5-5.1); Protein, Total 7.4 g/dL (6.4-8.2); Sodium Level 139 mmol/L (136-145); Triglycerides 177 mg/dL; Very Low Density Lipoprotein 35 mg/dL (5-40)
[2024-12-12 15:17] LABS: Vitamin B12 804 pg/mL (211-911); Vitamin D,25 Hydroxy 47.5 ng/mL
[2024-12-18 15:07] LABS: Testosterone, % Free 3.35 % (1.50-4.20); Testosterone, Free 4.79 ng/dL (5.00-21.00); Testosterone, Total 143 ng/dL (264-916)
== END | disposition home or self-care (01) ==
LOC: VSLAB 08:23
PROVIDERS: PCP Nurse Practitioner Family; Visit Provider Nurse Practitioner Family
DX: E78.5 Hyperlipidemia, unspecified (principal); E56.9 Vitamin deficiency, unspecified
CPT/HCPCS: 36415; 80053; 80061; 82306; 82607; 84402; 84403; 85025

== ENCOUNTER → 2025-06-10 | Outpatient (CLI) | payer OTHER, SELFPAY ==
[2025-06-10 12:38] LABS: Hematocrit 42.5 % (40-54); Hemoglobin 14.5 g/dL (13.0-16.5); Immature Granulocytes Count 0.020 X10^3/uL (0.0-0.0); Mean Corp Hgb Conc 34.1 g/dL (32-36); Mean Corpuscular Volume 92.8 fL (80-94); Mean Platelet Vol. 9.5 fl (6.2-12.0); NRBC Flagged by Analyzer 0 % (0-5); Platelet Count 220 K/mm3 (150-450); RBC Distribution Width CV 11.8 % (11.6-14.6); RBC Distribution Width SD 40.3 fl (35.1-43.9); Red Blood Count 4.58 M/mm3 (4.6-6.2); White Blood Count 7.9 K/mm3 (4.4-11.0)
[2025-06-10 13:13] LABS: PSA,Total- Diagnostic 2.61 ng/mL (0.00-4.00); Vitamin B12 868 pg/mL (180-914)
--- OUTSIDE RECORDS SUMMARY | 2025-06-10 18:09 | XMS RPT_ITS | CCD ---
Author Organization [facility] Informat ion Partnership [employer] [place] [facility] Care Team Providers Care Circulation Worker Name Role Phone RUSSELL LEON Attending Unavailable PHYSICIAN, NOT RECORDED Primary Care UnavailELEONORA Rios Attending Unavailable TU, ELEONORA Candelario Primary Care Unavailable TU, ELEONORA Candelario Admitting Unavailable TUELEONORA Attending Unavailable TU, ELEONORA Candelario Primary Care Unavailable TUELEONORA Admitting Unavailable MosherDeven cabral Attending Unavailable Mosher, Deven Primary Care Unavailable Mosher, Deven Primary Care Unavailable Mosher, Deven Attending Unavailable Mosher, Deven Primary Care Unavailable Mosher, Deven Referring Unavailable Mosher, Deven Attending Unavailable Mosher, Deven Attending Unavailable Mosher, Deven Primary Care Unavailable Medications Current Medications Medication Drug Class(es) Dates Sig (Normalized) Sig (Original) atorvastatin 10 mg oral tablet (3 sources) HMG-CoA Reductase Inhibitor Start: 09-23-2019 take 10 mg by mouth once daily Atorvastatin Active 10 MG PO DAILY September 23, 2019 1:00am esomeprazole 20 mg delayed release oral capsule (6 sources) Proton Pump Inhibitor Start: 10-22-2019 End: 12-20-2019 take 2 capsules by mouth once daily Esomeprazole Magnesium (Nexium) 20 mg capsule,delayed release(DR/EC) Active 40 MG PO DAILY December 20, 2019 9:33am fexofenadine hydrochloride 180 mg oral tablet (3 sources) Histamine-1 Receptor Antagonist Start: 09-23-2019 take 1 tablet by mouth once daily Fexofenadine (Danyelle Allergy) 180 mg tablet Active 180 MG PO DAILY September 23, 2019 1:00am sucralfate 1000 mg oral tablet (3 sources) Aluminum Complex Start: 10-22-2019 take 1 g by mouth once at bedtime Sucralfate Active 1 GM PO before meals and at bedtime 60 October 22, 2019 1:00am An hour before meals and at bedtime Completed/Discontinued Medications Medication Drug Class(es) Dates Sig (Normalized) Sig (Original) pantoprazole 40 mg delayed release oral tablet (3 sources) Proton Pump Inhibitor Start: 09-23-2019 End: 10-22-2019 take 40 mg by mouth at bedtime Pantoprazole Discontinued 40 MG PO AT BEDTIME 30 September 23, 2019 1:00am October 22, 2019 2:53pm Problems Problem Classification Problem Date Documented Da te Episodic/Chronic Disorders of lipid metabolism (1 source) Hyperlipidemia, unspecified; Translations: [Hyperlipidemia, unspecified] Onset: 12-25-2024 Chronic Other endocrine disorders (1 source) Testicular hypofunction; Translations: [Testicular hypofunction] Onset: 09-24-2024 Chronic Other gastrointestinal disorders (2 sources) Abdominal distension (gaseous); Translations: [Abdominal distension (gaseous)] Onset: 12-07-2018 Episodic Results Test Name Value Interpretation Reference Range Facility Testosterone, Total / Freeon 12-18-2024 TESTOSTER,FREE 4.79 ng/dL Abnormal 5.00-21.00 [facility] Comment on above: Order Comment: N Performed By: #### L 3100.5310, L100.0100, L500.4100, L506.1000, L500.4050, L503.0105 #### [facility] [address] [place], [address] TESTOSTER,TOTAL 143 ng/dL Low 264-916 [facility] Comment on above: Order Comment: N Result Comment: Adul t male reference interval is based on a population of healthy nonobese males (BMI <30) between 19 and 39 years old. Jeramy et.al. JCEM 2017,102;2544-0889. PMID: 72611855. Performed By: #### L 3100.5310, L100.0100, L500.4100, L506.1000, L500.4050, L503.0105 #### [facility] [address] [place], [address] TESTOSTERONE,%F 3.35 Normal 1.50-4.20 [facility] Comment on above: Order Comment: N Result Comment: Perf ormed at: - [facility] [id number] Chronic Disease Epidemiologist: Leon Vallejo PhD, Phone: [phone] Performed at: - [facility] [id number] Chronic Disease Epidemiologist: Leslie Olson MD, Phone: [phone] Performed By: #### L 3100.5310, L100.0100, L500.4100, L506.1000, L500.4050, L503.0105 #### [facility] [address] [place], [address] CBC W/Diff, Automatedon 02-0 -2024 Absolute Lymph 1.39 X10 3/uL Normal 0.83-4.51 [facility] Comment on above: Performed By: #### L 3100.5310, L100.0100, L500.4100, L506.1000, L500.4050, L503.0105 #### [facility] [address] [place], [address] Absolute Neut 3.9 X10 3/uL Normal 2.0-7.7 [facility] Comment on above: Performed By: #### L 3100.5310, L100.0100, L500.4100, L506.1000, L500.4050, L503.0105 #### [facility] [address] [place], [address] Basophils/100 WBC (Bld) 0.8 % Normal 0-1 [facility] Comment on above: Performed By: #### L 3100.5310, L100.0100, L500.4100, L506.1000, L500.4050, L503.0105 #### [facility] [address] [place], [address] Eosinophils/100 WBC (Bld) 3.6 % Normal 0-5 [facility] Comment on above: Performed By: #### L 3100.5310, L100.0100, L500.4100, L506.1000, L500.4050, L503.0105 #### [facility] [address] [place], [address] Erythrocyte distribution width (RBC) [Ratio] 11.9 % Normal 11.6-14.6 [facility] Comment on above: Performed By: #### L 3100.5310, L100.0100, L500.4100, L506.1000, L500.4050, L503.0105 #### [facility] [address] [place], [address] Hematocrit (Bld) [Volume fraction] 38.8 % Low 40-54 [facility] Comment on above: Performed By: #### L 3100.5310, L100.0100, L500.4100, L506.1000, L500.4050, L503.0105 #### [facility] [address] [place], [address] Hemoglobin (Bld) [Mass/Vol] 13.1 g/dL Normal 13.0-16.5 [facility] Comment on above: Performed By: #### L 3100.5310, L100.0100, L500.4100, L506.1000, L500.4050, L503.0105 #### [facility] [address] [facility], [address] IG% 0.300 Normal 0.0-0.9 [facility] Comment on above: Result Comment: IG% - Immature Granulocytes (promyelocytes, myelocytes and metamyelocytes) > 1% indicates that a LEFT SHIFT is Present. Performed By: #### L 3100.5310, L100.0100, L500.4100, L506.1000, L500.4050, L503.0105 #### [facility] [address] [place], [address] Lymphocytes/100 WBC (Bld) 23.1 % Normal 19-41 [facility] Comment on above: Performed By: #### L 3100.5310, L100.0100, L500.4100, L506.1000, L500.4050, L503.0105 #### [facility] [address] [place], [address] MCH (RBC) [Entitic mass] 31.6 pg Normal 27.0-32.0 [facility] Comment on above: Performed By: #### L 3100.5310, L100.0100, L500.4100, L506.1000, L500.4050, L503.0105 #### [facility] [address] [place], [address] MCHC (RBC) [Mass/Vol] 33.8 g/dL Normal 32-36 [facility] Comment on above: Performed By: #### L 3100.5310, L100.0100, L500.4100, L506.1000, L500.4050, L503.0105 #### [facility] [address] [place], [address] MCV (RBC) [Entitic vol] 93.7 fL Normal 80-94 [facility] Comment on above: Performed By: #### L 3100.5310, L100.0100, L500.4100, L506.1000, L500.4050, L503.0105 #### [facility] [address] [place], [address] Monocytes/100 WBC (Bld) 8.3 % Normal 0-10 [facility] Comment on above: Performed By: #### L 3100.5310, L100.0100, L500.4100, L506.1000, L500.4050, L503.0105 #### [facility] [address] [place], [address] Neutrophils/100 WBC (Bld) 63.9 % Normal 47-70 [facility] Comment on above: Performed By: #### L 3100.5310, L100.0100, L500.4100, L506.1000, L500.4050, L503.0105 #### [facility] [address] [place], [address] Nucleated RBC (Bld) [#/Vol] 0 10*3/uL Normal 0-5 [facility] Comment on above: Performed By: #### L 3100.5310, L100.0100, L500.4100, L506.1000, L500.4050, L503.0105 #### [facility] [address] [place], [address] Platelet mean volume (Bld) [Entitic vol] 9.9 fL Normal 6.2-12.0 [facility] Comment on above: Performed By: #### L 3100.5310, L100.0100, L500.4100, L506.1000, L500.4050, L503.0105 #### [facility] [address] [place], [address] Platelets (Bld) [#/Vol] 194 10*3/uL Normal 150-450 [facility] Comment on above: Performed By: #### L 3100.5310, L100.0100, L500.4100, L506.1000, L500.4050, L503.0105 #### [facility] [address] [place], [address] RBC (Bld) [#/Vol] 4.14 10*6/uL Low 4.6-6.2 [facility] Comment on above: Performed By: #### L 3100.5310, L100.0100, L500.4100, L506.1000, L500.4050, L503.0105 #### [facility] [address] [place], [address] RDW SD 40.8 fl Normal 35.1-43.9 [facility] Comment on above: Performed By: #### L 3100.5310, L100.0100, L500.4100, L506.1000, L500.4050, L503.0105 #### [facility] [address] [place], [address] WBC (Bld) [#/Vol] 6.0 10*3/uL Normal 4.4-11.[address] [facility] Comment on above: Performed By: #### L 3100.5310, L100.0100, L500.4100, L506.1000, L500.4050, L503.0105 #### [facility] [address] [place], [address] Comprehensive Metabolic Prof ilon 12-12-2024 Albumin [Mass/Vol] 4.0 g/dL Normal 3.2-5.[address] [facility] Comment on above: Performed By: #### L 3100.5310, L100.0100, L500.4100, L506.1000, L500.4050, L503.0105 #### [facility] [address] [place], [address] Albumin/Globulin [Mass ratio] 1.2 {ratio} Normal 0.9-2.4 [facility] Comment on above: Performed By: #### L 3100.5310, L100.0100, L500.4100, L506.1000, L500.4050, L503.0105 #### [facility] [address] [place], [address] ALK P 55 U/L Normal 45-117 [facility] Comment on above: Performed By: #### L 3100.5310, L100.0100, L500.4100, L506.1000, L500.4050, L503.0105 #### [facility] [address] [place], [address] ALT [Catalytic activity/Vol] 28 U/L Normal 16-61 [facility] Comment on above: Performed By: #### L 3100.5310, L100.0100, L500.4100, L506.1000, L500.4050, L503.0105 #### [facility] [address] [place], [address] AST [Catalytic activity/Vol] 18 U/L Normal 15-37 [facility] Comment on above: Performed By: #### L 3100.5310, L100.0100, L500.4100, L506.1000, L500.4050, L503.0105 #### [facility] [address] [place], [address] Bilirubin [Mass/Vol] 0.60 mg/dL Normal 0.20-1.00 [facility] Comment on above: Result Comment: For patients on eltrombopag therapy, use of Dimension [place] TBIL is not recommended. Performed By: #### L 3100.5310, L100.0100, L500.4100, L506.1000, L500.4050, L503.0105 #### [facility] [address] [place], [address] BUN/CRE 22.9 RATIO High 10-20 [facility] Comment on above: Performed By: #### L 3100.5310, L100.0100, L500.4100, L506.1000, L500.4050, L503.0105 #### [facility] [address] [place], [address] CA,Total 8.9 mg/dL Normal 8.5-10.1 [facility] Comment on above: Performed By: #### L 3100.5310, L100.0100, L500.4100, L506.1000, L500.4050, L503.0105 #### [facility] [address] [place], [address] Chloride [Moles/Vol] 106 mmol/L Normal 98-107 [facility] Comment on above: Performed By: #### L 3100.5310, L100.0100, L500.4100, L506.1000, L500.4050, L503.0105 #### [facility] [address] [place], [address] CO2 [Moles/Vol] 26.0 mmol/L Normal 21.0-32.0 [facility] Comment on above: Performed By: #### L 3100.5310, L100.0100, L500.4100, L506.1000, L500.4050, L503.0105 #### [facility] [address] [place], [address] Creatinine [Mass/Vol] 1.09 mg/dL Normal 0.70-1.30 [facility] Comment on above: Result Comment: The validity of the calculated GFR GFRAA in patients over 70 years has not been determined. Clinical correlation is essential. Performed By: #### L 3100.5310, L100.0100, L500.4100, L506.1000, L500.4050, L503.0105 #### [facility] [address] [place], [address] EST GFR - AA 87 mL/min Normal >60 [facility] Comment on above: Result Comment: Afri can Eritrean GFR Calc Performed By: #### L 3100.5310, L100.0100, L500.4100, L506.1000, L500.4050, L503.0105 #### [facility] [address] [place], [address] GAP 8 Normal 5-15 [facility] Comment on above: Performed By: #### L 3100.5310, L100.0100, L500.4100, L506.1000, L500.4050, L503.0105 #### [facility] [address] [place], [address] GFR/1.73 sq M.predicted among non-blacks MDRD (S/P/Bld) [Vol rate/Area] 72 mL/min/{1.73_m2} Normal >60 [facility] Comment on above: Result Comment: Non- GFR Calc Performed By: #### L 3100.5310, L100.0100, L500.4100, L506.1000, L500.4050, L503.0105 #### [facility] [address] [place], [address] Globulin (S) [Mass/Vol] 3.4 g/dL Normal 2.2-4.2 [facility] Comment on above: Performed By: #### L 3100.5310, L100.0100, L500.4100, L506.1000, L500.4050, L503.0105 #### [facility] [address] [place], [address] Glucose [Mass/Vol] 89 mg/dL Normal 74-[address] [facility] Comment on above: Performed By: #### L 3100.5310, L100.0100, L500.4100, L506.1000, L500.4050, L503.0105 #### [facility] [address] [place], [address] Potassium [Moles/Vol] 4.1 mmol/L Normal 3.5-5.1 [facility] Comment on above: Performed By: #### L 3100.5310, L100.0100, L500.4100, L506.1000, L500.4050, L503.0105 #### [facility] [address] [place], [address] Sodium [Moles/Vol] 139 mmol/L Normal 136-[address] [facility] Comment on above: Performed By: #### L 3100.5310, L100.0100, L500.4100, L506.1000, L500.4050, L503.0105 #### [facility] [address] [place], [address] T PROT 7.4 g/dL Normal 6.4-8.2 [facility] Comment on above: Performed By: #### L 3100.5310, L100.0100, L500.4100, L506.1000, L500.4050, L503.0105 #### [facility] [address] [place], [address] Urea nitrogen [Mass/Vol] 25 mg/dL High 7-18 [facility] Comment on above: Performed By: #### L 3100.5310, L100.0100, L500.4100, L506.1000, L500.4050, L503.0105 #### [facility] [address] [place], [address] Lipid Profileon 12-12-2024 Cholesterol [Mass/Vol] 149 mg/dL Normal 200 [facility] Comment on above: Result Comment: <200 mg/dL Desirable 200-240 mg/dL Borderline >240 mg/dL High Risk Performed By: #### L 3100.5310, L100.0100, L500.4100, L506.1000, L500.4050, L503.0105 #### [facility] [address] [place], [address] Cholesterol in HDL [Mass/Vol] 44 mg/dL Normal [facility] Comment on above: Result Comment: The drugs N-Acetylcysteine and Metamizole may falsely depress this assay. Reference Range HDL <40 mg/dL Low HDL Cholesterol HDL >or= 60 mg/dL High HDL Cholesterol Performed By: #### L 3100.5310, L100.0100, L500.4100, L506.1000, L500.4050, L503.0105 #### [facility] [address] [place], [address] Cholesterol in LDL [Mass/Vol] 70 mg/dL Normal 0-130 [facility] Comment on above: Performed By: #### L 3100.5310, L100.0100, L500.4100, L506.1000, L500.4050, L503.0105 #### [facility] [address] [place], [address] Cholesterol in VLDL [Mass/Vol] 35 mg/dL Normal 5-40 [facility] Comment on above: Performed By: #### L 3100.5310, L100.0100, L500.4100, L506.1000, L500.4050, L503.0105 #### [facility] [address] [place], [address] Triglyceride [Mass/Vol] 177 mg/dL Normal [facility] Comment on above: Result Comment: The drugs N-Acetylcysteine and Metamizole may falsely depress this assay. Serum Triglycerides Reference Interval Normal <150 mg/dL Borderline high 150 - 199 mg/dL High 200 - 499 mg/dL Very High > or = 500 mg/dL Performed By: #### L 3100.5310, L100.0100, L500.4100, L506.1000, L500.4050, L503.0105 #### [facility] [address] [place], [address] Vitamin B12on 12-12-2024 Cobalamin (Vitamin B12) [Mass/Vol] 804 pg/mL Normal 211-911 [facility] Comment on above: Performed By: #### L 3100.5310, L100.0100, L500.4100, L506.1000, L500.4050, L503.0105 #### [facility] [address] [place], [address] Vitamin D,25 Hydroxyon 12-12 Vitamin D 25-OH 47.5 ng/mL Normal [facility] Comment on above: Result Comment: Jennifer min D 25(OH) Status Range Deficiency <20 ng/mL (50nmol/L) Insufficiency 20 - 30 ng/mL (50 - 75 nmol/L) Sufficiency 30 - 100 ng/mL (75 - 250 nmol/L) Toxicity >100 ng/mL (>250 nmol/L) Performed By: #### L 3100.5310, L100.0100, L500.4100, L506.1000, L500.4050, L503.0105 #### [facility] [address] [place], [place], [address] Testosterone, Total / Freeon 09-12-2024 TESTOSTER,FREE 13.91 ng/dL Normal 5.00-21.00 [facility] Comment on above: Order Comment: N Performed By: #### L 501.9520, L3100.5310, L501.9940, L100.0100 #### [facility] [address] [place], [address] TESTOSTER,TOTAL 488 ng/dL Normal 264-916 [facility] Comment on above: Order Comment: N Result Comment: Adul t male reference interval is based on a population of healthy nonobese males (BMI <30) between 19 and 39 years old. Jeramy et.al. JCEM 2017,102;4387-5450. PMID: [id number]. Performed By: #### L 501.9520, L3100.5310, L501.9940, L100.0100 #### [facility] [address] [place], [address] TESTOSTERONE,%F 2.85 Normal 1.50-4.20 [facility] Comment on above: Order Comment: N Result Comment: Perf ormed at: - [facility] [id number] Chronic Disease Epidemiologist: Leon Vallejo PhD, Phone: [phone] Performed at: - [address] [id number] Chronic Disease Epidemiologist: Leslie lOson MD, Phone: [phone] Performed By: #### L 501.9520, L3100.5310, L501.9940, L100.0100 #### [facility] [address] [place], [address] CBC W/Diff, Automatedon 10-3 Absolute Lymph 1.47 X10 3/uL Normal 0.83-4.51 [facility] Comment on above: Performed By: #### L 501.9520, L3100.5310, L501.9940, L100.0100 #### [facility] [address] [place], [address] Absolute Neut 3.6 X10 3/uL Normal 2.0-7.7 [facility] Comment on above: Performed By: #### L 501.9520, L3100.5310, L501.9940, L100.0100 #### [facility] [address] [place], [address] Basophils/100 WBC (Bld) 0.8 % Normal 0-1 [facility] Comment on above: Performed By: #### L 501.9520, L3100.5310, L501.9940, L100.0100 #### [facility] [address] [place], [address] Eosinophils/100 WBC (Bld) 3.7 % Normal 0-5 [facility] Comment on above: Performed By: #### L 501.9520, L3100.5310, L501.9940, L100.0100 #### [facility] [address] [place], [address] Erythrocyte distribution width (RBC) [Ratio] 11.9 % Normal 11.6-14.6 [facility] Comment on above: Performed By: #### L 501.9520, L3100.5310, L501.9940, L100.0100 #### [facility] [address] [place], [address] Hematocrit (Bld) [Volume fraction] 42.4 % Normal 40-54 [facility] Comment on above: Performed By: #### L 501.9520, L3100.5310, L501.9940, L100.0100 #### [facility] [address] [place], [address] Hemoglobin (Bld) [Mass/Vol] 14.3 g/dL Normal 13.0-16.5 [facility] Comment on above: Performed By: #### L 501.9520, L3100.5310, L501.9940, L100.0100 #### [facility] [address] [place], [address] IG% 0.200 Normal 0.0-0.9 [facility] Comment on above: Result Comment: IG% - Immature Granulocytes (promyelocytes, myelocytes and metamyelocytes) > 1% indicates that a LEFT SHIFT is Present. Performed By: #### L 501.9520, L3100.5310, L501.9940, L100.0100 #### [facility] [address] [place], [address] Lymphocytes/100 WBC (Bld) 24.8 % Normal 19-41 [facility] Comment on above: Performed By: #### L 501.9520, L3100.5310, L501.9940, L100.0100 #### [facility] [address] [place], [address] MCH (RBC) [Entitic mass] 31.3 pg Normal 27.0-32.0 [facility] Comment on above: Performed By: #### L 501.9520, L3100.5310, L501.9940, L100.0100 #### [facility] [address] [place], [address] MCHC (RBC) [Mass/Vol] 33.7 g/dL Normal 32-36 [facility] Comment on above: Performed By: #### L 501.9520, L3100.5310, L501.9940, L100.0100 #### [facility] [address] [place], [address] MCV (RBC) [Entitic vol] 92.8 fL Normal 80-94 [facility] Comment on above: Performed By: #### L 501.9520, L3100.5310, L501.9940, L100.0100 #### [facility] [address] [place], [address] Monocytes/100 WBC (Bld) 10.0 % Normal 0-10 [facility] Comment on above: Performed By: #### L 501.9520, L3100.5310, L501.9940, L100.0100 #### [facility] [address] [place], [address] Neutrophils/100 WBC (Bld) 60.5 % Normal 47-70 [facility] Comment on above: Performed By: #### L 501.9520, L3100.5310, L501.9940, L100.0100 #### [facility] [address] [place], [address] Nucleated RBC (Bld) [#/Vol] 0 10*3/uL Normal 0-5 [facility] Comment on above: Performed By: #### L 501.9520, L3100.5310, L501.9940, L100.0100 #### [facility] [address] [place], [address] Platelet mean volume (Bld) [Entitic vol] 9.5 fL Normal 6.2-12.0 [facility] Comment on above: Performed By: #### L 501.9520, L3100.5310, L501.9940, L100.0100 #### [facility] [address] [place], [address] Platelets (Bld) [#/Vol] 210 10*3/uL Normal 150-450 [facility] Comment on above: Performed By: #### L 501.9520, L3100.5310, L501.9940, L100.0100 #### [facility] [address] [place], [address] RBC (Bld) [#/Vol] 4.57 10*6/uL Low 4.6-6.2 [facility] Comment on above: Performed By: #### L 501.9520, L3100.5310, L501.9940, L100.0100 #### [facility] [address] [place], [address] RDW SD 40.2 fl Normal 35.1-43.9 [facility] Comment on above: Performed By: #### L 501.9520, L3100.5310, L501.9940, L100.0100 #### [facility] [address] [place], [address] WBC (Bld) [#/Vol] 5.9 10*3/uL Normal 4.4-11.[address] [facility] Comment on above: Performed By: #### L 501.9520, L3100.5310, L501.9940, L100.0100 #### [facility] [address] [place], [address] PSA,Total- Diagnosticon 10-3 PSA, DIAGNOSTIC 2.40 ng/mL Normal 0.0-4.0 [facility] Comment on above: Result Comment: This test was performed using the TPSA assay method for the [employer] system. Values obtained with different assay methods cannot be used interchangably. When changing PSA assays in the course of monitoring a patient, additional sequential testing should be carried out to confirm baseline values. Performed By: #### L 501.9520, L3100.5310, L501.9940, L100.0100 #### [facility] [address] [place], [address] Thyroid Stim Hormone (TSH)on 09-05-2024 TSH 1.070 uIU/mL Normal 0.358-3.740 [facility] Comment on above: Performed By: #### L 501.9520, L3100.5310, L501.9940, L100.0100 #### [facility] [address] [place], [address] Testosterone, Total / Freeon 06-04-2024 TESTOSTER,FREE 2.84 ng/dL Abnormal 5.00-21.00 [facility] Comment on above: Order Comment: N Performed By: #### L 501.9520, L3100.5310, L501.9940, L100.0100 #### [facility] [address] [place], [address] TESTOSTERONE, T 131 ng/dL Low 264-916 [facility] Comment on above: Order Comment: N Result Comment: Adul t male reference interval is based on a population of healthy nonobese males (BMI <30) between 19 and 39 years old. Jeramy et.al. JCEM 2017,102;4620-5269. PMID: [id number]. Performed By: #### L 501.9520, L3100.5310, L501.9940, L100.0100 #### [facility] [address] [place], [address] TESTOSTERONE,%F 2.17 Normal 1.50-4.20 [facility] Comment on above: Order Comment: N Result Comment: Perf ormed at: [address] [id number] Chronic Disease Epidemiologist: Leon Vallejo PhD, Phone: [phone] Performed at: [facility] [address] [id number] Chronic Disease Epidemiologist: Leslie Olson MD, Phone: [phone] Performed By: #### L 501.9520, L3100.5310, L501.9940, L100.0100 #### [facility] [address] [place], [address] CBC W/Diff, Automatedon 07-2 -2023 Absolute Lymph 1.34 X10 3/uL Normal 0.83-4.51 [facility] Comment on above: Performed By: #### L 501.9520, L3100.5310, L501.9940, L100.0100 #### [facility] [address] [place], [address] Absolute Neut 4.6 X10 3/uL Normal 2.0-7.7 [facility] Comment on above: Performed By: #### L 501.9520, L3100.5310, L501.9940, L100.0100 #### [facility] [address] [place], [address] Basophils/100 WBC (Bld) 0.9 % Normal 0-1 [facility] Comment on above: Performed By: #### L 501.9520, L3100.5310, L501.9940, L100.0100 #### [facility] [address] [place], [address] Eosinophils/100 WBC (Bld) 2.4 % Normal 0-5 [facility] Comment on above: Performed By: #### L 501.9520, L3100.5310, L501.9940, L100.0100 #### [facility] [address] [place], [address] Erythrocyte distribution width (RBC) [Ratio] 11.9 % Normal 11.6-14.6 [facility] Comment on above: Performed By: #### L 501.9520, L3100.5310, L501.9940, L100.0100 #### [facility] [address] [place], [address] Hematocrit (Bld) [Volume fraction] 39.2 % Low 40-54 [facility] Comment on above: Performed By: #### L 501.9520, L3100.5310, L501.9940, L100.0100 #### [facility] [address] [place], [address] Hemoglobin (Bld) [Mass/Vol] 13.0 g/dL Normal 13.0-16.5 [facility] Comment on above: Performed By: #### L 501.9520, L3100.5310, L501.9940, L100.0100 #### [facility] [address] [place], [address] IG% 0.300 Normal 0.0-0.9 [facility] Comment on above: Result Comment: IG% - Immature Granulocytes (promyelocytes, myelocytes and metamyelocytes) > 1% indicates that a LEFT SHIFT is Present. Performed By: #### L 501.9520, L3100.5310, L501.9940, L100.0100 #### [facility] [address] [place], [address] Lymphocytes/100 WBC (Bld) 20.1 % Normal 19-41 [facility] Comment on above: Performed By: #### L 501.9520, L3100.5310, L501.9940, L100.0100 #### [facility] [address] [place], [address] MCH (RBC) [Entitic mass] 31.0 pg Normal 27.0-32.0 [facility] Comment on above: Performed By: #### L 501.9520, L3100.5310, L501.9940, L100.0100 #### [facility] [address] [place], [address] MCHC (RBC) [Mass/Vol] 33.2 g/dL Normal 32-36 [facility] Comment on above: Performed By: #### L 501.9520, L3100.5310, L501.9940, L100.0100 #### [facility] [address] [place], [address] MCV (RBC) [Entitic vol] 93.3 fL Normal 80-94 [facility] Comment on above: Performed By: #### L 501.9520, L3100.5310, L501.9940, L100.0100 #### [facility] [address] [place], [address] Monocytes/100 WBC (Bld) 7.2 % Normal 0-10 [place] Comment on above: Performed By: #### L 501.9520, L3100.5310, L501.9940, L100.0100 #### [facility] [address] [place], [address] Neutrophils/100 WBC (Bld) 69.1 % Normal 47-70 [facility] Comment on above: Performed By: #### L 501.9520, L3100.5310, L501.9940, L100.0100 #### [facility] [address] [place], [address] Nucleated RBC (Bld) [#/Vol] 0 10*3/uL Normal 0-5 [facility] Comment on above: Performed By: #### L 501.9520, L3100.5310, L501.9940, L100.0100 #### [facility] [address] [place], [address] Platelet mean volume (Bld) [Entitic vol] 9.4 fL Normal 6.2-12.0 [facility] Comment on above: Performed By: #### L 501.9520, L3100.5310, L501.9940, L100.0100 #### [facility] [address] [place], [address] Platelets (Bld) [#/Vol] 214 10*3/uL Normal 150-450 [facility] Comment on above: Performed By: #### L 501.9520, L3100.5310, L501.9940, L100.0100 #### [facility] [address] [place], [address] RBC (Bld) [#/Vol] 4.20 10*6/uL Low 4.6-6.2 [facility] Comment on above: Performed By: #### L 501.9520, L3100.5310, L501.9940, L100.0100 #### [facility] [address] [place], [address] RDW SD 41.2 fl Normal 35.1-43.9 [facility] Comment on above: Performed By: #### L 501.9520, L3100.5310, L501.9940, L100.0100 #### [facility] [address] [place], [address] WBC (Bld) [#/Vol] 6.7 10*3/uL Normal 4.4-11.[address] [facility] Comment on above: Performed By: #### L 501.9520, L3100.5310, L501.9940, L100.0100 #### [facility] [address] [place], [address] PSA,Total- Diagnosticon 07-2 PSA, DIAGNOSTIC 1.93 ng/mL Normal 0.0-4.0 [facility] Comment on above: Result Comment: This test was performed using the TPSA assay method for the [employer] chemistry system. Values obtained with different assay methods cannot be used interchangably. When changing PSA assays in the course of monitoring a patient, additional sequential testing should be carried out to confirm baseline values. Performed By: #### L 501.9520, L3100.5310, L501.9940, L100.0100 #### [facility] [address] [place], [address] Testosterone, Total / Freeon 04-10-2024 TESTOSTER,FREE 7.30 ng/dL Normal 5.00-21.00 [facility] Comment on above: Order Comment: N Performed By: #### L 501.9520, L3100.5310, L501.9940, L100.0100 #### [facility] [address] [place], [address] TESTOSTERONE, T 298 ng/dL Normal 264-916 [facility] Comment on above: Order Comment: N Result Comment: Adul t male reference interval is based on a population of healthy nonobese males (BMI <30) between 19 and 39 years old. ousmane Deshpande.al. JCEM 2017,102;2428-2534. PMID: [id number]. Performed By: #### L 501.9520, L3100.5310, L501.9940, L100.0100 #### [facility] [address] [place], [address] TESTOSTERONE,%F 2.45 Normal 1.50-4.20 [facility] Comment on above: Order Comment: N Result Comment: Perf ormed at: [facility] [address] [id number] Chronic Disease Epidemiologist: Leon Vallejo PhD, Phone: [phone] Performed at: [facility] [address] [id number] Chronic Disease Epidemiologist: Leslie Olson MD, Phone: [phone] Performed By: #### L 501.9520, L3100.5310, L501.9940, L100.0100 #### [facility] [address] [place], [address] CBC W/Diff, Automatedon 05 Absolute Lymph 1.62 X10 3/uL Normal 0.83-4.51 [facility] Comment on above: Performed By: #### L 501.9520, L3100.5310, L501.9940, L100.0100 #### [facility] [address] [place], [address] Absolute Neut 3.8 X10 3/uL Normal 2.0-7.7 [facility] Comment on above: Performed By: #### L 501.9520, L3100.5310, L501.9940, L100.0100 #### [facility] [address] [place], [address] Basophils/100 WBC (Bld) 1.0 % Normal 0-1 [facility] Comment on above: Performed By: #### L 501.9520, L3100.5310, L501.9940, L100.0100 #### [facility] [address] [place], [address] Eosinophils/100 WBC (Bld) 2.3 % Normal 0-5 [facility] Comment on above: Performed By: #### L 501.9520, L3100.5310, L501.9940, L100.0100 #### [facility] [address] [place], [address] Erythrocyte distribution width (RBC) [Ratio] 11.9 % Normal 11.6-14.6 [facility] Comment on above: Performed By: #### L 501.9520, L3100.5310, L501.9940, L100.0100 #### [facility] [address] [place], [address] Hematocrit (Bld) [Volume fraction] 38.5 % Low 40-54 [facility] Comment on above: Performed By: #### L 501.9520, L3100.5310, L501.9940, L100.0100 #### [facility] [address] [place], [address] Hemoglobin (Bld) [Mass/Vol] 12.8 g/dL Low 13.0-16.5 [facility] Comment on above: Performed By: #### L 501.9520, L3100.5310, L501.9940, L100.0100 #### [facility] [address] [place], [address] IG% 0.300 Normal 0.0-0.9 [facility] Comment on above: Result Comment: IG% - Immature Granulocytes (promyelocytes, myelocytes and metamyelocytes) > 1% indicates that a LEFT SHIFT is Present. Performed By: #### L 501.9520, L3100.5310, L501.9940, L100.0100 #### [facility] [address] [place], [address] Lymphocytes/100 WBC (Bld) 26.2 % Normal 19-41 [facility] Comment on above: Performed By: #### L 501.9520, L3100.5310, L501.9940, L100.0100 #### [facility] [address] [place], [address] MCH (RBC) [Entitic mass] 30.8 pg Normal 27.0-32.0 [facility] Comment on above: Performed By: #### L 501.9520, L3100.5310, L501.9940, L100.0100 #### [facility] [address] [place], [address] MCHC (RBC) [Mass/Vol] 33.2 g/dL Normal 32-36 [facility] Comment on above: Performed By: #### L 501.9520, L3100.5310, L501.9940, L100.0100 #### [facility] [address] [place], [address] MCV (RBC) [Entitic vol] 92.5 fL Normal 80-94 [facility] Comment on above: Performed By: #### L 501.9520, L3100.5310, L501.9940, L100.0100 #### [facility] [address] [place], [address] Monocytes/100 WBC (Bld) 8.4 % Normal 0-10 [facility] Comment on above: Performed By: #### L 501.9520, L3100.5310, L501.9940, L100.0100 #### [facility] [address] [place], [address] Neutrophils/100 WBC (Bld) 61.8 % Normal 47-70 [facility] Comment on above: Performed By: #### L 501.9520, L3100.5310, L501.9940, L100.0100 #### [facility] [address] [place], [address] Nucleated RBC (Bld) [#/Vol] 0 10*3/uL Normal 0-5 [facility] Comment on above: Performed By: #### L 501.9520, L3100.5310, L501.9940, L100.0100 #### [facility] [address] [place], [address] Platelet mean volume (Bld) [Entitic vol] 9.9 fL Normal 6.2-12.0 [facility] Comment on above: Performed By: #### L 501.9520, L3100.5310, L501.9940, L100.0100 #### [facility] [address] [place], [address] Platelets (Bld) [#/Vol] 232 10*3/uL Normal 150-450 [facility] Comment on above: Performed By: #### L 501.9520, L3100.5310, L501.9940, L100.0100 #### [facility] [address] [place], [address] RBC (Bld) [#/Vol] 4.16 10*6/uL Low 4.6-6.2 [facility] Comment on above: Performed By: #### L 501.9520, L3100.5310, L501.9940, L100.0100 #### [facility] [address] [place], [address] RDW SD 40.7 fl Normal 35.1-43.9 [facility] Comment on above: Performed By: #### L 501.9520, L3100.5310, L501.9940, L100.0100 #### [facility] [address] [place], [address] WBC (Bld) [#/Vol] 6.2 10*3/uL Normal 4.4-11.[address] [facility] Comment on above: Performed By: #### L 501.9520, L3100.5310, L501.9940, L100.0100 #### [facility] [address] [place], [address] Comprehensive Metabolic Prof [facility] 04-04-2024 Albumin [Mass/Vol] 3.9 g/dL Normal 3.2-5.[address] [facility] Comment on above: Performed By: #### L 501.9520, L3100.5310, L501.9940, L100.0100 #### [facility] [address] [place], [address] Albumin/Globulin [Mass ratio] 1.2 {ratio} Normal 0.9-2.4 [facility] Comment on above: Performed By: #### L 501.9520, L3100.5310, L501.9940, L100.0100 #### [facility] [address] [place], [address] ALK P 55 U/L Normal 45-117 [facility] Comment on above: Performed By: #### L 501.9520, L3100.5310, L501.9940, L100.0100 #### [facility] [address] [place], [address] ALT [Catalytic activity/Vol] 24 U/L Normal 16-61 [facility] Comment on above: Performed By: #### L 501.9520, L3100.5310, L501.9940, L100.0100 #### [facility] [address] [place], [address] AST [Catalytic activity/Vol] 14 U/L Low 15-37 [facility] Comment on above: Performed By: #### L 501.9520, L3100.5310, L501.9940, L100.0100 #### [facility] [address] [place], [address] Bilirubin [Mass/Vol] 0.70 mg/dL Normal 0.20-1.00 [facility] Comment on above: Result Comment: For patients on eltrombopag therapy, use of Dimension [place] TBIL is not recommended. Performed By: #### L 501.9520, L3100.5310, L501.9940, L100.0100 #### [facility] [address] [place], [address] BUN/CRE 19.3 RATIO Normal 10-20 [facility] Comment on above: Performed By: #### L 501.9520, L3100.5310, L501.9940, L100.0100 #### [facility] [address] [place], [address] CA,Total 8.6 mg/dL Normal 8.5-10.1 [facility] Comment on above: Performed By: #### L 501.9520, L3100.5310, L501.9940, L100.0100 #### [facility] [address] [place], [address] Chloride [Moles/Vol] 105 mmol/L Normal 98-107 [facility] Comment on above: Performed By: #### L 501.9520, L3100.5310, L501.9940, L100.0100 #### [facility] [address] [place], [address] CO2 [Moles/Vol] 28.0 mmol/L Normal 21.0-32.0 [facility] Comment on above: Performed By: #### L 501.9520, L3100.5310, L501.9940, L100.0100 #### [facility] [address] [place], [address] Creatinine [Mass/Vol] 0.99 mg/dL Normal 0.70-1.30 [facility] Comment on above: Result Comment: The validity of the calculated GFR GFRAA in patients over 70 years has not been determined. Clinical correlation is essential. Performed By: #### L 501.9520, L3100.5310, L501.9940, L100.0100 #### [facility] [address] [place], [address] EST GFR - AA 98 mL/min Normal >60 [facility] Comment on above: Result Comment: Afri can Eritrean GFR Calc Performed By: #### L 501.9520, L3100.5310, L501.9940, L100.0100 #### [facility] [address] [place], [address] GAP 6 Normal 5-15 [facility] Comment on above: Performed By: #### L 501.9520, L3100.5310, L501.9940, L100.0100 #### [facility] [address] [place], [address] GFR/1.73 sq M.predicted among non-blacks MDRD (S/P/Bld) [Vol rate/Area] 81 mL/min/{1.73_m2} Normal >60 [facility] Comment on above: Result Comment: Non- GFR Calc Performed By: #### L 501.9520, L3100.5310, L501.9940, L100.0100 #### [facility] [address] [place], [address] Globulin (S) [Mass/Vol] 3.2 g/dL Normal 2.2-4.2 [place] Comment on above: Performed By: #### L 501.9520, L3100.5310, L501.9940, L100.0100 #### [facility] [address] [place], [address] Glucose [Mass/Vol] 108 mg/dL High 74-[address] [facility] Comment on above: Result Comment: Fast ing Glucose result from 100 to 125 mg/dL suggests IMPAIRED HOMEOSTASIS per A.D.A. criteria. Performed By: #### L 501.9520, L3100.5310, L501.9940, L100.0100 #### [facility] [address] [place], [address] Potassium [Moles/Vol] 3.8 mmol/L Normal 3.5-5.1 [facility] Comment on above: Performed By: #### L 501.9520, L3100.5310, L501.9940, L100.0100 #### [facility] [address] [place], [address] Sodium [Moles/Vol] 139 mmol/L Normal 136-[address] [facility] Comment on above: Performed By: #### L 501.9520, L3100.5310, L501.9940, L100.0100 #### [facility] [address] [place], [address] T PROT 7.1 g/dL Normal 6.4-8.2 [facility] Comment on above: Performed By: #### L 501.9520, L3100.5310, L501.9940, L100.0100 #### [facility] [address] [place], [address] Urea nitrogen [Mass/Vol] 19 mg/dL High 7-18 [facility] Comment on above: Performed By: #### L 501.9520, L3100.5310, L501.9940, L100.0100 #### [facility] [address] [place], [address] Hemoglobin A1con 04-04-2024 HbA1c (Bld) [Mass fraction] 5.4 % Normal 3.8-5.6 [facility] Comment on above: Result Comment: Norm al < 5.7 % Prediabetic 5.7 - 6.4 % Diabetic >or= 6.5 % Please note range changes. Performed By: #### L 501.9520, L3100.5310, L501.9940, L100.0100 #### [facility] [address] [place], [address] Lipid Profileon 04-04-2024 Cholesterol [Mass/Vol] 161 mg/dL Normal 200 [facility] Comment on above: Result Comment: <200 mg/dL Desirable 200-240 mg/dL Borderline >240 mg/dL High Risk Performed By: #### L 501.9520, L3100.5310, L501.9940, L100.0100 #### [facility] [address] [place], [address] Cholesterol in HDL [Mass/Vol] 43 mg/dL Normal [facility] Comment on above: Result Comment: The drugs N-Acetylcysteine and Metamizole may falsely depress this assay. Reference Range HDL <40 mg/dL Low HDL Cholesterol HDL >or= 60 mg/dL High HDL Cholesterol Performed By: #### L 501.9520, L3100.5310, L501.9940, L100.0100 #### [facility] [address] [place], [address] Cholesterol in LDL [Mass/Vol] 89 mg/dL Normal 0-130 [facility] Comment on above: Performed By: #### L 501.9520, L3100.5310, L501.9940, L100.0100 #### [facility] [address] [place], [address] Cholesterol in VLDL [Mass/Vol] 29 mg/dL Normal 5-40 [facility] Comment on above: Performed By: #### L 501.9520, L3100.5310, L501.9940, L100.0100 #### [facility] [address] [place], [address] Triglyceride [Mass/Vol] 143 mg/dL Normal [facility] Comment on above: Result Comment: The drugs N-Acetylcysteine and Metamizole may falsely depress this assay. Serum Triglycerides Reference Interval Normal <150 mg/dL Borderline high 150 - 199 mg/dL High 200 - 499 mg/dL Very High > or = 500 mg/dL Performed By: #### L 501.9520, L3100.5310, L501.9940, L100.0100 #### [facility] [address] [place], [address] PSA,Total - Annual Screenon 04-04-2024 PSA,TOT SCREEN 1.92 ng/mL Normal 0.00-4.00 [facility] Comment on above: Result Comment: This test was performed using the TPSA assay method for the [employer] chemistry system. Values obtained with different assay methods cannot be used interchangably. When changing PSA assays in the course of monitoring a patient, additional sequential testing should be carried out to confirm baseline values. Performed By: #### L 501.9520, L3100.5310, L501.9940, L100.0100 #### [facility] [address] [place], [address] Thyroid Stim Hormone (TSH)on 04-04-2024 TSH 0.99 uIU/mL Normal 0.358-3.74 [facility] Comment on above: Performed By: #### L 501.9520, L3100.5310, L501.9940, L100.0100 #### [facility] [address] [place], [address] Urinalysis, Routine (Dipstic k)on 04-04-2024 BILIRUBIN URINE Negative Normal Negative [facility] Comment on above: Order Comment: CLEAN CATCH Performed By: #### L 501.9520, L3100.5310, L501.9940, L100.0100 #### [facility] [address] [place], [address] Clarity (U) Clear Normal Clear [facility] Comment on above: Order Comment: CLEAN CATCH Performed By: #### L 501.9520, L3100.5310, L501.9940, L100.0100 #### [facility] [address] [place], [address] Color (U) Yellow Normal Yellow [facility] Comment on above: Order Comment: CLEAN CATCH Performed By: #### L 501.9520, L3100.5310, L501.9940, L100.0100 #### [facility] [address] [place], [address] GLUCOSE, UR Normal Normal Normal [facility] Comment on above: Order Comment: CLEAN CATCH Performed By: #### L 501.9520, L3100.5310, L501.9940, L100.0100 #### [facility] [address] [place], [address] KETONE UR Negative Normal Negative [facility] Comment on above: Order Comment: CLEAN CATCH Performed By: #### L 501.9520, L3100.5310, L501.9940, L100.0100 #### [facility] [address] [place], [address] LEUK ESTERASE Negative Normal Negative [facility] Comment on above: Order Comment: CLEAN CATCH Performed By: #### L 501.9520, L3100.5310, L501.9940, L100.0100 #### [facility] [address] [place], [address] Nitrite Ql (U) Negative Normal Negative [facility] Comment on above: Order Comment: CLEAN CATCH Performed By: #### L 501.9520, L3100.5310, L501.9940, L100.0100 #### [facility] [address] [place], [address] OCCULT BLOOD-UR 10 /ul Abnormal Negative [facility] Comment on above: Order Comment: CLEAN CATCH Performed By: #### L 501.9520, L3100.5310, L501.9940, L100.0100 #### [facility] [address] [place], [address] pH UR 6.0 Normal 5.0 - 8.0 [facility] Comment on above: Order Comment: CLEAN CATCH Performed By: #### L 501.9520, L3100.5310, L501.9940, L100.0100 #### [facility] [address] [place], [address] PROT DIPSTX Negative Normal Negative [facility] Comment on above: Order Comment: CLEAN CATCH Performed By: #### L 501.9520, L3100.5310, L501.9940, L100.0100 #### [facility] [address] [place], [address] SP.GR. DIPSTX 1.010 Normal 1.002-1.030 [facility] Comment on above: Order Comment: CLEAN CATCH Performed By: #### L 501.9520, L3100.5310, L501.9940, L100.0100 #### [facility] [address] [place], [address] UROBILI Normal Normal Normal [facility] Comment on above: Order Comment: CLEAN CATCH Performed By: #### L [id number], L3100.5310, L501.9940, L100.0100 #### [facility] [address] [place], [address] Vitamin B12on 04-04-2024 Cobalamin (Vitamin B12) [Mass/Vol] 412 pg/mL Normal 211-911 [facility] Comment on above: Performed By: #### L 501.9520, L3100.5310, L501.9940, L100.0100 #### [facility] [address] [place], [address] Vitamin D,25 Hydroxyon 04-04 Vitamin D 25-OH 28.4 ng/mL Normal [facility] Comment on above: Result Comment: Jennifer min D 25(OH) Status Range Deficiency <20 ng/mL (50nmol/L) Insufficiency 20 - 30 ng/mL (50 - 75 nmol/L) Sufficiency 30 - 100 ng/mL (75 - 250 nmol/L) Toxicity >100 ng/mL (>250 nmol/L) Performed By: #### L 501.9520, L3100.5310, L501.9940, L100.0100 #### [facility] [address] [place], [address] Basophil percentageOrdered B y: Amber Florian on 07-28-2023 Cholesterol [Mass/Vol] 162 mg/dL <200 [facility] Comment on above: <200 mg/dL Desirable 200-240 mg/dL Borderline >240 mg/dL High Risk Triglyceride [Mass/Vol] 172 mg/dL <199 [facility] Comment on above: The drugs N-Acetylcy steine and Metamizole may falsely depress this assay.Serum Triglycerides Reference Interval Normal <150 mg/dL Borderline high 150 - 199 mg/dL High 200 - 499 mg/dL Very High > or = 500 mg/dL Laboratory - Chemistry and C hemistry - challengeOrdered By: Amber Florian on 07-28-2023 ALT [Catalytic activity/Vol] 31 U/L 16-61 [facility] Serum or plasma cholesterol in HDL measurement (mass/volume)Ordered By: Amber Florian on 07-28-2023 Cholesterol in HDL [Mass/Vol] 43 mg/dL >40 [facility] Comment on above: The drugs N-Acetylcy steine and Metamizole may falsely depress this assay. Reference Range HDL <40 mg/dL Low HDL Cholesterol HDL >or= 60 mg/dL High HDL Cholesterol Serum or plasma cholesterol in VLDL measurement (mass/volume)Ordered By: Amber Florian on 07-28-2023 Cholesterol in VLDL [Mass/Vol] 34 mg/dL 5-40 [facility] Serum or plasma low density lipoprotein (LDL) cholesterol measurement (mass/volume)Ordered By: Amber Florian on 07-28-2023 Cholesterol in LDL [Mass/Vol] 85 mg/dL 0-130 [facility] Thin prep Papanicolaou smear with manual screeningOrdered By: Amber Florian on 07-28-2023 Thin prep Papanicolaou smear with manual screening 18 U/L 15-37 [facility] Absolute lymphocyte counton 04-25-2022 Lymphocytes Auto (Unsp spec) [#/Vol] 1.93 10*3/uL 0.83-4.51 [facility] Work Phone: Basophil percentageon 2021 Basophils/100 WBC (Bld) 0.9 % 0-1 [place] Work Phone: Bilirubin [Mass/Vol] 0.50 mg/dL 0.20-1.00 [facility] Work Phone: Comment on above: For patients on eltr ombopag therapy, use of Dimension [place] TBIL is not recommended. Chloride [Moles/Vol] 106 mmol/L 98-107 [facility] Work Phone: Cholesterol [Mass/Vol] 160 mg/dL <200 [facility] Work Phone: Comment on above: <200 mg/dL Desirable 200-240 mg/dL Borderline >240 mg/dL High Risk Eosinophils/100 WBC (Bld) 2.1 % 0-5 [facility] Work Phone: Glucose [Mass/Vol] 93 mg/dL 74-[address] [facility] Work Phone: Neutrophils (Bld) [#/Vol] 3.9 10*3/uL 2.0-7.7 [facility] Work Phone: Neutrophils/100 WBC (Bld) 58.4 % 47-70 [facility] Work Phone: Potassium [Moles/Vol] 3.8 mmol/L 3.5-5.1 [facility] Work Phone: Protein [Mass/Vol] 7.2 g/dL 6.4-8.[address] [facility] Work Phone: Sodium [Moles/Vol] 140 mmol/L 136-[address] [facility] Work Phone: Triglyceride [Mass/Vol] 224 mg/dL <199 [facility] Work Phone: Comment on above: The drugs N-Acetylcy steine and Metamizole may falsely depress this assay.Serum Triglycerides Reference Interval Normal <150 mg/dL Borderline high 150 - 199 mg/dL High 200 - 499 mg/dL Very High > or = 500 mg/dL WBC (Bld) [#/Vol] 6.6 10*3/uL 4.4-11.[address] [facility] Work Phone: Blood erythrocytes count (nu mber/volume)on 04-25-2022 RBC (Bld) [#/Vol] 4.10 10*6/uL 4.6-6.2 [facility] Work Phone: Blood hemoglobin measurement (mass/volume)on 04-25-2022 Hemoglobin (Bld) [Mass/Vol] 12.5 g/dL 13.0-16.5 [facility] Work Phone: Blood lymphocytes/100 leukoc yteson 04-25-2022 Lymphocytes/100 WBC (Bld) 29.1 % 19-41 [facility] Work Phone: Blood monocytes/100 leukocyt eson 04-25-2022 Monocytes/100 WBC (Bld) 9.3 % 0-10 [facility] Work Phone: Blood platelet mean volumeon 04-25-2022 Platelet mean volume (Bld) [Entitic vol] 9.6 fL 6.2-12.0 [facility] Work Phone: Determination of erythrocyte mean corpuscular volume (MCV)on 04-25-2022 MCV (RBC) [Entitic vol] 91.5 fL 80-94 [facility] Work Phone: Hematocrit Auto (Bld) [Volum e fraction]on 04-25-2022 Hematocrit (Bld) [Volume fraction] 37.5 % 40-54 [facility] Work Phone: Iron measurement (mass/mass) on 04-25-2022 Iron (Unsp spec) [Mass/Mass] 100 ug/dL 65-175 [facility] Work Phone: Laboratory - Chemistry and C hemistry - challengeon 04-25-2022 ALP [Catalytic activity/Vol] 66 U/L 45-117 [facility] Work Phone: ALT [Catalytic activity/Vol] 22 U/L 16-61 [facility] Work Phone: CO2 [Moles/Vol] 29.0 mmol/L 21.0-32.0 [facility] Work Phone: Cobalamin (Vitamin B12) [Mass/Vol] 435 pg/mL 211-911 [facility] Work Phone: Globulin (S) [Mass/Vol] 3.3 g/dL 2.2-4.2 [facility] Work Phone: Urea nitrogen/Creatinine [Mass ratio] 19.5 mg/mg 10-20 [facility] Work Phone: Laboratory - Hematology and Cell countson 04-25-2022 Erythrocyte distribution width (RBC) [Entitic vol] 39.7 fL 35.1-43.9 [facility] Work Phone: Erythrocyte distribution width (RBC) [Ratio] 11.9 % 11.6-14.6 [facility] Work Phone: Immature granulocytes/100 WBC (Bld) 0.200 % 0.0-0.9 [facility] Work Phone: Comment on above: IG% - Immature Granu locytes (promyelocytes, myelocytes and metamyelocytes) > 1% indicates that a LEFT SHIFT is Present. MCH (RBC) [Entitic mass] 30.5 pg 27.0-32.0 [facility] Work Phone: Nucleated RBC/100 WBC (Bld) [Ratio] 0 % 0-5 [facility] Work Phone: MCHC Auto (RBC) [Mass/Vol]on 04-25-2022 MCHC (RBC) [Mass/Vol] 33.3 g/dL 32-36 [facility] Work Phone: No Panel Informationon 04-25 Estimated GFR (MDRD) Amer 84 mL/min >60 [facility] Work Phone: Comment on above: GFR Calc Estimated GFR (MDRD) Non-Af Amer 70 mL/min >60 [facility] Work Phone: Comment on above: Non- GFR Calc Total Iron Binding Capacity 280 ug/dL 250-450 [facility] Work Phone: Platelets bldon 04-25-2022 Platelets (Bld) [#/Vol] 247 10*3/uL 150-450 [facility] Work Phone: Serum or plasma albumin bhavik urement (mass/volume)on 04-25-2022 Albumin [Mass/Vol] 3.9 g/dL 3.2-5.[address] [facility] Work Phone: Serum or plasma albumin/glob ulin mass ratioon 04-25-2022 Albumin/Globulin [Mass ratio] 1.2 {ratio} 0.9-2.4 [facility] Work Phone: Serum or plasma calcium bhavik urement (mass/volume)on 04-25-2022 Calcium [Mass/Vol] 8.6 mg/dL 8.5-10.[address] [facility] Work Phone: Serum or plasma cholesterol in HDL measurement (mass/volume)on 04-25-2022 Cholesterol in HDL [Mass/Vol] 40 mg/dL >40 [facility] Work Phone: Comment on above: The drugs N-Acetylcy steine and Metamizole may falsely depress this assay. Reference Range HDL <40 mg/dL Low HDL Cholesterol HDL >or= 60 mg/dL High HDL Cholesterol Serum or plasma cholesterol in VLDL measurement (mass/volume)on 04-25-2022 Cholesterol in VLDL [Mass/Vol] 45 mg/dL 5-40 [facility] Work Phone: Serum or plasma creatinine m easurement (mass/volume)on 04-25-2022 Creatinine [Mass/Vol] 1.13 mg/dL 0.70-1.30 [facility] Work Phone: Comment on above: The validity of the calculated GFR & GFRAA in patients over 70 years has not been determined. Clinical correlation is essential. Serum or plasma ferritin lisa surement (mass/volume)on 04-25-2022 Ferritin [Mass/Vol] 264 ng/mL 26-388 [facility] Work Phone: Serum or plasma iron saturat ion measurement (mass fraction)on 04-25-2022 Iron saturation [Mass fraction] 35.7 % 15.0-55.0 [facility] Work Phone: Serum or plasma low density lipoprotein (LDL) cholesterol measurement (mass/volume)on 04-25-2022 Cholesterol in LDL [Mass/Vol] 75 mg/dL 0-130 [facility] Work Phone: Serum or plasma urea nitroge n measurement (mass/volume)on 04-25-2022 Urea nitrogen [Mass/Vol] 22 mg/dL 7-18 [facility] Work Phone: Thin prep Papanicolaou smear with manual screeningon 04-25-2022 Thin prep Papanicolaou smear with manual screening 11 U/L 15-37 [facility] Work Phone: Thin prep Papanicolaou smear with manual screening 5 5-15 [facility] Work Phone: Whole blood hemoglobin A1c/t otal hemoglobin ratio (mass fraction)on 04-25-2022 HbA1c (Bld) [Mass fraction] 5.5 % 3.8-5.6 [facility] Work Phone: Comment on above: Normal < 5.7 % Predi abetic 5.7 - 6.4 % Diabetic >or= 6.5 % Please note range changes. Final Surgical Pathology Rep natasha 12-10-2018 Final Surgical Pathology Report . Pathology Reports Accession: Collected Date/Time: Received Date/Time: Pathologist: [id number] 12/07/2018 15:00 EST 12/07/2018 15:00 CRESENCIO CAPUTO MD Final Surgical Pathology Report DIAGNOSIS: A) RIGHT AND LEFT COLON, BIOPSIES -- COLONIC MUCOSA WITH LYMPHOID FOLLICLE FORMATION. NEGATIVE FOR COLITIS. B) TERMINAL ILEUM, BIOPSY -- ILEAL MUCOSA WITHOUT SIGNIFICANT MICROSCOPIC PATHOLOGY. CLINICAL INFORMATION: DIARRHEA SPECIMEN: A RIGHT AND LEFT COLON BIOPSIES - R/O MICROSCOPIC COLITIS B TERMINAL ILEUM BIOPSIES - R/O CROHN'S GROSS DESCRIPTION: A. Received in formalin labeled right and left colon biopsies are several castillo glistening soft tissues ranging from 0.1-0.3 cm. TS -1 B. Received in formalin labeled terminal ileum biopsies are 2 castillo glistening soft tissues, 0.3 and 0.4 cm. TS -1 Dictated by Cathy WHITE ([facility]) MICROSCOPIC DESCRIPTION: A&B) Slides reviewed. Electronically Signed by Pathology Report verified by [facility] Electronically signed by CRESENCIO GOODMAN Sign out Date: 12/10/2018 13:48 Performing Lab: [facility], [address] [place] [id number] [place] [address] ([place]) Comment on above: Performed By: #### S PFR #### [address] [address] Encounters Encounter Date Encounter Type Care Provider Facility Start: 12-12-2024 End: 12-12-2024 ambulatory [facility] Facility:[facility] Start: 09-05-2024 End: 09-05-2024 ambulatory [facility] Facility:[facility] Start: 05-30-2024 End: 05-30-2024 ambulatory Deven Mosher Facility:[facility] Start: 04-13-2024 Encounter for genera l adult medical examination without abnormal findings Deven Mosher [facility] Start: 04-04-2024 End: 04-04-2024 ambulatory Deven Mosher Facility:[facility] Start: 07-28-2023 End: 07-28-2023 ambulatory [facility] Work Phone: Start: 07-28-2023 End: 07-28-2023 Patient encounter procedure [facility] Work Phone: Start: 04-25-2022 End: 04-25-2022 Patient encounter procedure [facility] Start: 01-29-2021 End: 01-29-2021 Patient encounter procedure [facility] Start: 01-08-2021 End: 01-08-2021 Patient encounter procedure [facility] Start: 12-07-2018 End: 12-12-2018 Patient encounter procedure [facility] Facility:A Payers Date Payer Category Payer Self-pay [id number] 2011 Unknown [id number] 2011 Unknown [id number] 1959 Unknown [id number] 2.16.8 [id number] 1959 Unknown [id number] 2.16.84 [id number] 1960 Unknown [id number] 2.16.84 [id number] Unknown [id number] 2.16.8 [id number] Unknown [id number] 2.16.8 [id number] Unknown [id number] 2.16.8 [id number] Unknown [id number] 2.16.8 [id number] Social History Date Type Detail Facility [facility] Start: 10-15-2019 Non-smoker [facility] Start: 1960 Sex Assigned At Male [facility] Evaluation note Note Date & Type Note Facility Evaluation note No assessment information availa ble [facility] Work Phone: Summary Purpose Family History No Family History Records Found Relationship Condition Age at Onset Recorded Date/T francesco father Cardiac disease Unknown Malignant neoplasm Unknown mother Hypertension Unknown Advance Directives No Advanced Directives Records Found Advance Directive Response Recorded Date/ Time Living Will No October 15 2:23pm Power of Product Safety Head No October 15, 2019 2:23pm Chief Complaint and Reason for Visit Chief Complaint EORDERS Additional Source Comments (unrecognized sect ion and content) No Status Records FoundNo Status Records FoundNo Status Records Found INFORMATION SOURCE (unrecogn ized section and content) DATE CREATED AUTHOR 12/25/2018 [facility] ([place]) DATE CREATED AUTHOR AUTHOR'S ORGANIZ ATION 02/09/2021 [facility] DATE CREATED AUTHOR AUTHOR'S ORGANIZ ATION 12/26/[address] [facility] Goals (unrecognized section and content) Goals may be documented in a n alternate sectionGoals may be documented in an alternate sectionGoals may be documented in an alternate section Care Teams (unrecognized sec tion and content) Team Status: Active Member Role Status Dates Dr. Manuel Rangel MD Family Provider Active Deja Lopez DO Primary Care Provider Active Team Status: Inactive Member Role Status Dates Deja Lopez DO Primary Care Provider Active Dr. Amber Florian MD Attending Provider, Referring [employer] Active FOR RECORDS PERTAINING TO PATIENTS WHO ARE OR HAVE BEEN ENROLLED IN A CHEMICAL DEPENDENCY/SUBSTANCEABUSE PROGRAM, SOME INFORMATION MAY BE OMITTED. This clinical summary was aggregated from multiple sources. Caution should be exercised in using it in the provision of clinical care. This summary normalizes information from multiple sources, and as a consequence, information in this document may materially change the coding, format and clinical context of patient data. In addition, data may be omitted in some cases. CLINICAL DECISIONS SHOULD BE BASED ON THE PRIMARY CLINICAL RECORDS. [employer] [facility]. provides no warranty or guarantee of the accuracy or completeness of information in this document.
[2025-06-14 10:08] LABS: Testosterone, % Free 3.92 % (1.50-4.20); Testosterone, Free 24.42 ng/dL (5.00-21.00)
== END | disposition home or self-care (01) ==
LOC: VSLAB 10:41
PROVIDERS: PCP Nurse Practitioner Family; Visit Provider Nurse Practitioner Family
DX: E29.1 Testicular hypofunction (principal)
CPT/HCPCS: 36415; 82607; 84153; 84402; 84403; 85025